=== PATIENT | female | born 1960 | race African-American/Black ===

== ENCOUNTER 2018-11-03 09:18 | Day surgery (SDC) | payer OTHER ==
--- NOTE | 2018-11-01 14:18 | RAD REPORT ---
EXAM DESCRIPTION: Manasa Bryan (2 Views)11/01/2018 2:08 pm CLINICAL HISTORY: Preop for ankle surgery COMPARISON: 2013 FINDINGS: The right hemidiaphragm is moderately elevated. The elevation has progressed since the reno or exam. The lungs appear clear of acute infiltrate. The heart is normal size
[2018-11-01 14:25] LABS: Absolute Lymphocytes (CBC) 2.1 K/uL (0.7-4.9); Absolute Monocytes 0.4 K/uL (0.1-1.3); Absolute Neutrophil 2.9 K/uL (1.8-8.0); Basophils % 0.6 % (0-1.3); Hematocrit 41.9 % (36.0-45.0); Lymphocytes % 37.2 % (15.3-44.8); MPV 8.3 fL (7.6-11.3); Monocytes % 6.5 % (3.3-12.3); RBC Red Blood Cell Count 4.54 M/uL (3.86-4.86)
[2018-11-01 14:28] LABS: Protime INR 1.03
[2018-11-01 14:45] LABS: Potassium 3.8 mmol/L (3.5-5.1)
--- NOTE | 2018-11-01 15:06 | EKG ---
Test Date: 2018-11-01 Test Time: 13:48:10 Shank Taper: SUSHMA MEASUREMENT RESULTS: Intervals: Rate: 55 NC: 168 QRSD: 78 QT: 484 QTc: 463 [place]: P: 31 NC: 168 QRS: 41 T: 54 INTERPRETIVE STATEMENTS: Sinus bradycardia Otherwise normal ECG Compared to ECG 08/16/2011 06:52:04 No significant changes Electronically Signed On 11-01-18 15:05:43 GAME PROGRAMMER by Michael Bay
--- OUTSIDE RECORDS SUMMARY | 2018-11-03 09:20 | XMS REPORT | Clinical Summary ---
:1960 Author Organization [facility] Address [address] [place] [id number] Care Team Providers Name Role Phone Telly Yao MD Primary Care Provider Unavailable Allergies No Known Allergies Medications Medication Sig Dispensed Refills Start Date End Date Status carvedilol (COREG) Take 12.5 mg by 0 Active 12.5 MG tablet mouth every morning. benazepril Take 40 mg by mouth 0 Active (LOTENSIN) 40 MG every morning. tablet pregabalin (LYRICA) Take 100 mg by mouth 0 Active 100 MG capsule 3 (three) times a day. ESCITALOPRAM OXALATE Take by mouth every 0 Active (LEXAPRO ORAL) morning. ALBUTEROL SULFATE Inhale as needed. 0 Active INHL CHOLECALCIFEROL, Take by mouth daily. 0 Active VITAMIN D3, (VITAMIN D3 ORAL) cetirizine (ZyrTEC) TAKE 1 TABLET BY 5 03/26/2016 Active 10 MG tablet MOUTH ONCE A DAY NEEDED FOR ALLERGIES MICROLET LANCET misc USE 2 TIMES A DAY (E 12 04/03/2016 Active 11.9) LYRICA 150 mg Take 150 mg by mouth 0 04/15/2016 Active capsule 3 (three) times a day. CRESTOR 10 mg tablet Take 10 mg by mouth 04/01/2016 Active once daily. amLODIPine (NORVASC) 0 10/31/2016 Active 5 mg tablet escitalopram Take 20 mg by mouth 5 10/05/2016 Active (LEXAPRO) 20 MG once daily. tablet HYDROcodone-acetamin 0 10/28/2016 Active ophen (NORCO) 10-325 mg per tablet omeprazole TAKE ONE CAPSULE BY 30 capsule 05/07/2017 Active (PriLOSEC) 40 MG MOUTH EVERY DAY capsule BEFORE A MEAL cyanocobalamin 1,000 INJECT 1 MILLILITER 1 mL 05/15/2017 Active mcg/mL injection INTRAMUSCULARLY ONCE EVERY MONTH Active Problems Problem Noted Date Hypertension 05/03/2016 Chronic headaches 05/03/2016 Morbid obesity 04/28/2016 Encounters Date Type Specialty Care Team Description 05/24/2018 Refill General Surgery Rodrick Wyman MD after 11/02/2017 Family History Medical History Relation Name Comments Heart disease Father Hyperlipidemia Father Cancer Sister Relation Name Status Comments Father Alive [place];CABG Mother (Age 58) hx [place] Sister Social History Tobacco Use Types Packs/Day Years Used Date Never Smoker Smokeless Tobacco: Never Used Alcohol Use Drinks/Week oz/Week Comments Yes social < 2/week Sex Assigned at Date Recorded Not on file Job Start Date Occupation Industry Not on file Not on file Not on file Travel History Travel Start Travel End No recent travel history available. Last Filed Vital Signs Not on file Plan of Treatment Health Maintenance Due Date Last Done Comments CERVICAL CANCER SCREENING 1980 BREAST CANCER SCREENING 2009 COLON CANCER SCREENING 2009 SHINGLES VACCINES (1 of 2) 2009 INFLUENZA VACCINE 05/19/2018 Implants Implanted Type Area Channel Specialist Device Shelf Model / Identifier Expiration Serial / Date Lot Matrix [employer] Floseal 10ml W/ Humn F2 - [id number] Surgical N/A: MIRAMONTES 08/18 [id number] / Implanted: Qty: 1 on 04/28/2016 by Rodrick Wyman MD Implants; Abdomen, BIOSCIENCE / Expanders; Middle [id number] Extenders; Quadrant/No Surgical n Specific Wires Results Not on fileafter 11/02/2017 Insurance Payer Benefit Plan / Group Subscriber ID Type Phone Address MEDICARE MEDICARE PART A AND B xxxxxxxxxxx Medicare [place], [place] MEDICAID MEDICAID xxxxxxxxx Medicaid Advance Directives Patient has advance care planning documents on file. For more information, please contact:[place] [address]
[2018-11-03] MEDS ORDERED: NA CHLORIDE 0.9% 1,000 ML ONE ×2 (10:24→12:32)
[2018-11-03] MEDS ORDERED: CEFAZOLIN 2GM (PREMIX IV) 2 GM/50 ML BAG ONE (10:24)
[2018-11-03] MEDS ORDERED: MIDAZOLAM HCL 2 MG/2 ML INJ ONE ×2 (10:48→11:59)
[2018-11-03] MEDS: BUPIVACAINE 0.5% PF 10 ML VIAL ONE ×2 (11:34→12:26)
[2018-11-03] MEDS ORDERED: LIDOCAINE 2% MPF 5 ML VIAL ONE (11:59)
[2018-11-03] MEDS ORDERED: PROPOFOL 200 MG/20 ML VIAL IV ONE ×2 (11:59→13:44)
[2018-11-03] MEDS ORDERED: FENTANYL CITR 100 MCG/2 ML ONE ×3 (11:59→13:04)
[2018-11-03] MEDS ORDERED: ONDANSETRON 4 MG/2 ML VIAL ONE (11:59)
[2018-11-03] MEDS ORDERED: GLYCOPYRROLATE 0.2 MG/ML SYR ONE (12:03)
[2018-11-03] MEDS ORDERED: MORPHINE 10 MG/ML VIAL ONE (12:25)
[2018-11-03] MEDS ORDERED: BUPIVACAINE 0.5% PF 10 ML VIAL ONE (12:34)
[2018-11-03] MEDS ORDERED: EPHEDRINE SULF 50 MG/ML VIAL ONE (12:58)
--- NOTE | 2018-11-03 13:29 | RAD REPORT ---
EXAM DESCRIPTION: RAD - Ankle Right 2 View - 11/03/2018 1:24 pm CLINICAL HISTORY: RT ANKLE ORIF COMPARISON: No comparisons FINDINGS: Fluoroscopic imaging of the right ankle was submitted from ORIF procedure. Details of the procedure not available. Five spot images are submitted. Total fluoroscopy time 0.6 minutes.
[2018-11-03] MEDS: MEPERIDINE HCL 50 MG/ML AMP ONE ×4 (13:47→14:03)
--- NOTE | 2018-11-03 13:48 | P.BOP ---
Preoperative diagnosis: right bimalleolar ankle fracture Postoperative diagnosis: same Primary procedure: ORIF right bimalleolar ankle fracture Secondary procedure: same Branch Rental Manager: NONE,NONE Estimated blood loss: 10 cc Specimen: none Findings: see dictation Anesthesia: General Complications: None Implants: 3 hole Biomet locking distal fibula plate, 1 4.0 cannulated screw Fluids & blood products: per anesthesia; TT: 72 mins @ 300 mmHg Transferred to: Recovery Room Condition: Good
[2018-11-03] MEDS ORDERED: ONDANSETRON 4 MG/2 ML VIAL IV PRN (13:49)
[2018-11-03] MEDS ORDERED: DOCUSATE NA 100 MG CAP PO PRN (13:49)
[2018-11-03] MEDS: HYDROMORPHONE HCL 1 MG/ML INJ ONE ×4 (13:54→14:16)
[2018-11-03] MEDS: PREGABALIN 50 MG CAP PO SCH ×2 (14:00→21:07)
--- NOTE | 2018-11-03 14:42 | RAD REPORT ---
EXAM DESCRIPTION: RAD - Ankle Right 2 View - 11/03/2018 2:15 pm CLINICAL HISTORY: post op COMPARISON: Ankle Right 2 View dated 11/03/2018 FINDINGS: Orthopedic hardware is present about the right ankle. No unexpected postoperative finding. Splint material is present, obscuring bone detail. Prominent calcaneal spur seen.
[2018-11-03 14:47] LABS: Hematocrit 37.9 % (36.0-45.0)
[2018-11-03] MEDS ORDERED: ALBUTEROL (PROAIR) INHALER IH PRN (15:00)
[2018-11-03 16:18] VITALS: BMI 40.5
[2018-11-03] MEDS: INSULIN -REGULAR HUMAN 50 UNIT/0.5 ML ML SQ SCH ×3 (16:30→21:00)
--- NOTE | 2018-11-03 16:51 | P.CNS ---
Date of Consult: 11/03/18 Reason for Consult: Chronic Medical Disease Requesting Physician: Mohan Mcgovern Primary Care Provider: Dr Yao Chief Complaint: Right ankle Fracture History of Present Illness: This is a 58-year-old female with significant past medical history of hypertension, asthma, diabetes, depression, hyperlipidemia who presented to the hospital in the outpatient surgery center to get her right ankle fracture fixed. Patient had full couple a days ago at the house and had fractured her right ankle and was seen by orthopedic in the office and was scheduled for an operation procedure. Patient had open reduction internal fixation of her right ankle with orthopedics today and did well overall however due to her chronic condition the decision was made to admit the patient here in the hospital for 24 hr after the surgery. Medicine team was consulted at that time to manage all her chronic condition as mentioned above. Allergies No Known Allergies Allergy (Verified 11/01/18 13:32) Home Medications: Benazepril HCl [Lotensin*] 40 mg PO DAILY 01/25/15 Cetirizine HCl [Zyrtec] 5 mg PO BID 01/25/15 Citalopram [Celexa] 20 mg PO DAILY 01/25/15 Metformin ER [Glucophage ER] 500 mg PO BID 01/25/15 Pregabalin [Lyrica] 150 mg PO TID 01/25/15 Albuterol Sulfate [Proair Hfa] 8.5 gm IH PRN PRN 11/01/18 Amlodipine [Norvasc] 10 mg PO [id number] 11/01/18 Atorvastatin Calcium [Lipitor] 40 mg PO BEDTIME 11/01/18 Dulaglutide [Trulicity] 0.75 mg SQ EVERY 7TH DAY 11/01/18 Hydrocodone 7.5/APAP 325 [[place] 7.5/325 mg] 1 tab PO Q6H PRN 11/01/18 Omeprazole [Prilosec] 40 mg PO DAILY 11/01/18 Mv-Mn/Iron/FA/Herbal Cmplx#190 [Vitamin D3 Complete Caplet] 1 each PO DAILY - Past Medical/Surgical History Diabetic: Yes -: Diabetes -: Hypertension -: Asthma -: Obstructive Sleep Apnea -: MRSA 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 moist/pink, EOMI, Sclerae nonicteric Neck: Supple, 2+ carotid pulse no bruit, No LAD, Without JVD or thyroid abnormality Respiratory: Clear to auscultation bilaterally, Normal air movement Cardiovascular: Regular rate/rhythm, Normal S1 S2 Gastrointestinal: Normal bowel sounds, No tenderness Musculoskeletal: Cast in place (Right ankle) Integumentary: No rashes Neurological: Normal gait, Normal speech, Normal tone, Normal affect Lymphatics: No axilla or inguinal lymphadenopathy Laboratory Data (last 24 hrs) 11/03/18 14:17: Hgb 12.6, Hct 37.9 - Problems (1) Ankle fracture, right Current Visit: Yes Status: Acute Plan: Right ankle fracture status post fall -orthopedics is primary on the case. -patient status post open reduction internal fixation of the right ankle at this time -tolerated the procedure well -PT consulted to ambulate. -IS ordered to prevent atelectasis versus pneumonia -monitor closely for next 24-48 hr Qualifiers: Encounter type: initial encounter Fracture type: closed Qualified Code(s) : S82.891A - Other fracture of right lower leg, initial encounter for closed fracture (2) Hypertension Current Visit: Yes Status: Chronic Plan: Currently blood pressure is controlled. -will restart home medication at this time. -patient taking amlodipine at the house along with a beta-louann Qualifiers: Hypertension type: essential hypertension Qualified Code(s): I10 - Essential (primary) hypertension (3) Diabetes Current Visit: Yes Status: Chronic Plan: Patient takes metformin and Trulicity -will hold both of them at this time -insulin sliding scale at this time -ADA diet Qualifiers: Diabetes mellitus type: type 2 Diabetes mellitus prism measurer insulin use: without detention use Diabetes mellitus complication status: without complication Qualified Code(s): E11.9 - Type 2 diabetes mellitus without complications (4) Asthma Current Visit: Yes Status: Chronic Plan: Chronic history of intermittent asthma -monitor closely here in the hospital. Qualifiers: Asthma severity: mild Asthma persistence: intermittent Asthma complication type: unspecified Qualified Code(s): J45.20 - Mild intermittent asthma, uncomplicated Conclusions/Impression: Patient is currently admitted to the hospital under observation after having ankle fracture surgery. Will monitor closely for next 24-48 hr. Will follow along with orthopedics. Thank you for the kind consult. Critical Care: No
[2018-11-03] MEDS ORDERED: METFORMIN ER 500 MG TAB PO SCH (17:00)
[2018-11-03] MEDS: CEFAZOLIN 2GM (PREMIX IV) 2 GM/50 ML BAG IV SCH ×2 (18:18→23:37)
[2018-11-03] MEDS: HYDROCODONE/APAP 7.5/325 MG TAB PO PRN ×2 (18:23→23:36)
[2018-11-03] MEDS ORDERED: NA CHLORIDE 0.9% 250 ML ONE (18:32)
[2018-11-03] MEDS: MORPHINE 4 MG/ML SYR IV PRN (19:47)
[2018-11-03] MEDS ORDERED: ATORVASTATIN 40 MG TAB PO SCH (21:00)
[2018-11-03] MEDS: CETIRIZINE HCL 5 MG TABLET PO SCH (21:08)
[2018-11-03 22:08] VITALS: O2SAT 98
[2018-11-03 23:37] LABS: Urine Appearance CLEAR; Urine Bilirubin NEGATIVE (NEG); Urine Blood NEGATIVE (NEG); Urine Color YELLOW; Urine Glucose NEGATIVE (NEG); Urine Protein NEGATIVE (NEG); Urine Specific Gravity 1.015 (1.005-1.030); Urine Urobilinogen 0.2 mg/dL (0.2-1.0)
[2018-11-03 23:38] LABS: Urine Microscopic Reflex NO UMIC
[2018-11-04] MEDS: MORPHINE 4 MG/ML SYR IV PRN ×2 (01:53→09:36)
--- NOTE | 2018-11-04 02:04 | OP ---
Date of Procedure: 11/03/2018 Surgeon: Mohan Mcgovern MD Preoperative Diagnosis: Right bimalleolar ankle fracture. Postoperative Diagnosis: Right bimalleolar ankle fracture. Procedure Performed: Open reduction and internal fixation of right bimalleolar ankle fracture. Anesthesia: General LMA. Fluids: Per Anesthesia record. Estimated Blood Loss: Less than 10 cc. Tourniquet Time: 72 minutes at 300 mmHg. Indication For Procedure: Margy is a 58-year-old female who presented to my clinic after sustaining a twisting injury to her right ankle with x-rays consistent with a bimalleolar ankle fracture. Given the unstable fracture pattern, I discussed with the patient at length risks and benefits associated with operative and nonoperative treatment. She expressed understanding and elected to proceed with operative treatment. Description Of Procedure: After informed consent was obtained, the patient was identified in the preoperative holding area. The right lower extremity was marked. The patient was then brought back to the operating room, transferred to the operative table in supine fashion and placed under general LMA anesthesia. The right lower extremity was then prepped and draped in usual sterile fashion. A time-out was initiated. Correct patient and procedure were confirmed and identified. The patient did receive preoperative prophylactic antibiotics. The right lower extremity was then exsanguinated using an Esmarch and the tourniquet inflated at 300 mmHg. Approximately, a 12 cm longitudinal incision was made over the lateral aspect of the ankle along the distal fibula. Dissection was taken down to the distal fibula using a Metzenbaum. It appeared to me that the venous tourniquet, there was venous bleeding with the dissection. At that point, the tourniquet was let down and then reinflated. As that was performed, bleeding was then well controlled. Again, the fracture site was identified. It was an oblique fracture pattern. The patient did appear to have weakened bone and at that point, it was elected to use a distal fibular locking plate. A point reduction clamp was then used to reduce the oblique fracture pattern, and 3-hole distal fibular locking plate was placed to the lateral malleolus. Proper positioning was confirmed using fluoroscopy. Four unicortical locking screws were placed in the distal fragment, followed by 3 screws in a bicortical fashion in the proximal segment. There was good overall reduction of the fracture fragment and confirmed with fluoroscopy. A Cotton's test was used to confirm that the syndesmosis was in fact intact. Wound was then irrigated thoroughly with normal saline, and subcutaneous tissue was approximated using a 2-0 Vicryl. Next, attention was taken to the medial malleolus. The fracture was very distal and there was a small fracture fragment that was large enought to only take 1 screw. Dissection was then taken down to the tip of the medial malleolus using Metzenbaum. A single guide pin was then placed in the tip of the fracture fragment in a retrograde fashion to the distal tibia. A 36 cannulated partially-threaded 4.0 screw was used, placed over the guide pin, after the outer cortex was drilled. There was good compression at the fracture site noted. Pin was then removed. Lateral x-rays again demonstrated proper placement of the hardware in the lateral view. Final x-rays were taken. Wound was then irrigated thoroughly with normal saline. The subcutaneous tissue was approximated using a 2-0 Vicryl, skin was approximated using a 3-0 nylon. Sterile dressings were applied. The patient was placed in a posterior stirrup splint, awakened and transferred to PACU in good condition. Postoperative Plan: She will be nonweightbearing on her right lower extremity. She will be admitted to the floor. Given her history of hypertension and diabetes, Internal Medicine will be consulted for medical management, and we will plan on discharge tomorrow if she mobilizes safely. FRANCISCO/JV Voice ID: [id number] Report ID: [id number] PENG
[2018-11-04] MEDS ORDERED: BENAZEPRIL 20 MG TAB PO SCH (06:00)
[2018-11-04] MEDS ORDERED: AMLODIPINE 10 MG TAB PO SCH (06:00)
[2018-11-04] MEDS: HYDROCODONE/APAP 7.5/325 MG TAB PO PRN ×2 (06:01→14:05)
[2018-11-04] MEDS: CEFAZOLIN 2GM (PREMIX IV) 2 GM/50 ML BAG IV SCH (06:01)
[2018-11-04] MEDS ORDERED: PANTOPRAZOLE 40MG TABLET PO SCH (06:30)
[2018-11-04] MEDS: INSULIN -REGULAR HUMAN 50 UNIT/0.5 ML ML SQ SCH ×3 (07:30→16:30)
[2018-11-04] MEDS: PREGABALIN 50 MG CAP PO SCH ×2 (08:48→14:04)
[2018-11-04] MEDS: CETIRIZINE HCL 5 MG TABLET PO SCH (08:48)
[2018-11-04] MEDS ORDERED: CITALOPRAM 10 MG TABLET PO SCH (09:00)
--- NOTE | 2018-11-04 10:01 | P.PN ---
Subjective Date of Service: 11/04/18 Primary Care Provider: Dr Yao Chief Complaint: Right ankle Fracture Resting in bed during visit. She reports right ankle pain but has improved since yesterday. Physical Examination - Vital Signs Temperature: 98.3 F Blood Pressure: 148/72 Pulse: 65 Respirations: 17 Pulse Ox (%): 95 - Physical Exam General: Alert, In no apparent distress Musculoskeletal: Other (RLE: splint is c/d/i; +EHL/FHL; sensation grossly intact distally) - Studies Laboratory Data (last 24 hrs) 11/03/18 14:17: Hgb 12.6, Hct 37.9 Assessment And Plan - Plan Margy is a 58 yo female s/p ORIF of her right ankle fracture POD#1 -will mobilize with PT this AM -if mobilizes safely with PT will d/c home -home pain management per her pain management physician
--- NOTE | 2018-11-04 11:39 | P.PN ---
Subjective Date of Service: 11/04/18 Primary Care Provider: Dr Yao Chief Complaint: Right ankle Fracture Subjective: Tolerating diet, Ambulating, Improving, Working w/ PT, Doing well Review of Systems 10-point ROS is otherwise unremarkable Physical Examination - Vital Signs Temperature: 98.3 F Blood Pressure: 148/72 Pulse: 65 Respirations: 17 Pulse Ox (%): 95 - Physical Exam General: Alert, In no apparent distress HEENT: Atraumatic, PERRLA, EOMI Neck: Supple, JVD not distended Respiratory: Clear to auscultation bilaterally, Normal air movement Cardiovascular: Regular rate/rhythm, Normal S1 S2 Gastrointestinal: Normal bowel sounds, No tenderness Musculoskeletal: Other Integumentary: No rashes Neurological: Normal speech, Normal tone, Normal affect Lymphatics: No axilla or inguinal lymphadenopathy - Studies Laboratory Data (last 24 hrs) 11/03/18 14:17: Hgb 12.6, Hct 37.9 Medications List Reviewed: Yes Assessment And Plan - Current Problems (Diagnosis) (1) Ankle fracture, right Current Visit: Yes Status: Acute Plan: Right ankle fracture status post fall -orthopedics is primary on the case. -patient status post open reduction internal fixation of the right ankle at this time -tolerated the procedure well -PT consulted to ambulate. -IS ordered to prevent atelectasis versus pneumonia Qualifiers: Encounter type: initial encounter Fracture type: closed Qualified Code(s) : S82.891A - Other fracture of right lower leg, initial encounter for closed fracture (2) Hypertension Current Visit: Yes Status: Chronic Plan: Currently blood pressure is controlled. -will restart home medication at this time. -patient taking amlodipine at the house along with a beta-louann Qualifiers: Hypertension type: essential hypertension Qualified Code(s): I10 - Essential (primary) hypertension (3) Diabetes Current Visit: Yes Status: Chronic Plan: Patient takes metformin and Trulicity -will hold both of them at this time -insulin sliding scale at this time -ADA diet Qualifiers: Diabetes mellitus type: type 2 Diabetes mellitus skilled nursing insulin use: without long term care pharmacist use Diabetes mellitus complication status: without complication Qualified Code(s): E11.9 - Type 2 diabetes mellitus without complications (4) Asthma Current Visit: Yes Status: Chronic Plan: Chronic history of intermittent asthma -monitor closely here in the hospital. Qualifiers: Asthma severity: mild Asthma persistence: intermittent Asthma complication type: unspecified Qualified Code(s): J45.20 - Mild intermittent asthma, uncomplicated Discharge Plan: Home Plan to discharge in: 48 Hours - Code Status/Comfort Care Code Status Assessed: Yes Critical Care: No
[2018-11-04 18:29] VITALS: BP 116/58; TEMP 98.6
[2018-11-10] MEDS ORDERED: HOME MED 1 EA UNK (Dulaglutide [Trulicity] 0.75 MG) SQ SCH (09:00)
== END 2018-11-04 17:35 | disposition home health service (06) ==
LOC: OR 09:18 → 2ND 14:05 → OR 11-04 17:35
PROVIDERS: ATTEND Orthopaedic Surgery Sports Medicine
PROC: 0QSJ04Z Reposition Right Fibula with Internal Fixation Device, Open Approach (ICD-10-PCS; 2018-11-03)
PROC: 0QSG04Z Reposition Right Tibia with Internal Fixation Device, Open Approach (ICD-10-PCS; principal; 2018-11-03 10:30)
DX: S82.841A Displaced bimalleolar fracture of right lower leg, initial encounter for closed fracture (principal); E11.9 Type 2 diabetes mellitus without complications; I10 Essential (primary) hypertension; J45.909 Unspecified asthma, uncomplicated; K21.9 Gastro-esophageal reflux disease without esophagitis; Z88.6 Allergy status to analgesic agent; Z98.84 Bariatric surgery status
CPT/HCPCS: 27814; 36415 ×2; 71046; 73600 ×2; 80048; 81003; 82962 ×7; 85014; 85018; 85025; 85610; 85730; 93005; 97116; 97163; 97530 ×3; J0690 ×2; J1170 ×2; J2175; J2250; J2405 ×2; J2704 ×2; J3010 ×3; J7030 ×2

== ENCOUNTER 2019-12-14 11:59 | Emergency (ER) | payer OTHER ==
--- OUTSIDE RECORDS SUMMARY | 2019-12-14 12:02 | XMS REPORT ---
:1960 [facility] Address [address] [place] [address] Dr. Palomino. [address] [place] [address] Care Team Providers Name Role Phone Unavailable Unavailable Unavailable Problems This patient has no known problems. Allergies, Adverse Reactions, Alerts This patient has no known allergies or adverse reactions. Medications This patient has no known medications.
--- OUTSIDE RECORDS SUMMARY | 2019-12-14 12:03 | XMS REPORT | Summary of Care ---
:1960 Author Organization [facility] Address [address] [place] [address] Care Team Providers Name Role Phone Unavailable Primary Care Provider Unavailable Reason for Visit Reason Comments Refill Request Encounter Details Date Type Department Care Team Description 07/02/[address] [facility] Endocrinology- Sarai Turner MD Refill Request [facility] [address] [place] [phone] Allergies No Known Allergiesdocumented as of this encounter (statuses as of 07/06/2019) Medications Medication Sig Dispensed Refills Start Date End Date Status benazepril 40 mg Take 40 mg by mouth. 0 Active tablet escitalopram oxalate Take by mouth. 0 Active 10 mg tablet albuterol 0.63 mg/3 Inhale. 0 Active mL nebulizer solution cetirizine 10 mg TAKE 1 TABLET BY 0 03/26/2016 Active tablet MOUTH ONCE A DAY NEEDED FOR ALLERGIES Cholecalciferol, Take by mouth. 0 Active Vitamin D3, 400 unit tablet zolpidem (AMBIEN) 5 Take 5 mg by mouth 0 Active mg tablet at bedtime as needed for Insomnia. esomeprazole Take 40 mg by mouth 0 Active (NEXIUM) 40 mg daily with capsule breakfast. AMLODIPINE 10 mg TAKE 1 TABLET BY 120 tablet 0 04/28/2018 Active tabletIndications: MOUTH DAILY. Essential hypertension, Bradycardia cyanocobalamin 1,000 INJECT 1 MILLILITER 9 04/23/2018 Active mcg/mL injection INTRAMUSCULARLY ONCE EVERY MONTH diphenoxylate-atropi TAKE 1 TABLET BY 1 04/23/2018 Active ne 2.5-0.025 mg per MOUTH FOUR TIMES A tablet DAY NEEDED ONE TOUCH DELICA 33 USE DIRECTED, 1 04/23/2018 Active gauge Misc TWICE A DAY, DX:E11.9 omeprazole 40 mg TAKE 1 CAPSULE BY 0 05/30/2018 Active capsule MOUTH EVERY DAY ondansetron 4 mg TAKE 1 TABLET BY 2 05/30/2018 Active tablet MOUTH ONCE A DAY indomethacin 50 mg Take 50 mg by mouth 0 Active capsule 3 (three) times daily with meals. ONETOUCH ULTRA BLUE USE DIRECTED, 200 Strip 1 10/26/2018 Active TEST STRIP strip TWICE A DAY, DX:E11.9 metformin ER 500 mg Take 2 tablets by 360 tablet 1 10/26/2018 Active 24 hr mouth 2 (two) times tabletIndications: daily. Type 2 diabetes mellitus without complication, without long-term current use of insulin sitaGLIPtin Take 1 tablet by 90 tablet 1 01/10/2019 Active (JANUVIA) 100 mg mouth daily. tabletIndications: Type 2 diabetes mellitus without complication, without long-term current use of insulin ATORVASTATIN 40 mg TAKE 1 TABLET BY 90 tablet 1 02/07/2019 Active tablet MOUTH AT BEDTIME. ONE TOUCH DELICA 33 USE DIRECTED, 200 Each 1 02/28/2019 Active gauge Misc TWICE A DAY, DX:E11.9 glipiZIDE 10 mg Take 1 tablet by 30 tablet 2 05/31/2019 Active tabletIndications: mouth daily. Type 2 diabetes mellitus without complication, without long-term current use of insulin documented as of this encounter (statuses as of 07/06/2019) Active Problems Problem Noted Date S/P hysterectomy 06/02/2018 Vasomotor symptoms due to menopause 06/02/2018 Morbid obesity 06/02/2018 Abnormal thyroid blood test 01/27/2018 Dyslipidemia 01/27/2018 Essential hypertension 01/27/2018 Type 2 diabetes mellitus without complication, without long-term current 10/21 use of insulin Low TSH level 10/21/2017 Low serum cortisol level 10/21/2017 Weight gain 10/21/2017 documented as of this encounter (statuses as of 07/06/2019) Social History Tobacco Use Types Packs/Day Years Used Date Never Smoker Smokeless Tobacco: Never Used Alcohol Use Drinks/Week oz/Week Comments Yes Rare Sex Assigned at Date Recorded Not on file Job Start Date Occupation Industry Not on file Not on file Not on file Travel History Travel Start Travel End No recent travel history available. documented as of this encounter Last Filed Vital Signs Not on filedocumented in this encounter Plan of Treatment Health Maintenance Due Date Last Done Comments HEPATITIS C (HCV) SCREEN 1960 PNEUMOCOCCAL 0-64 YEARS COMBINED 1965 SERIES (1 of 1 - PPSV23) EYE EXAM 1969 URINE MICROALBUMIN 1969 DTaP,Tdap,and Td Vaccines (1 - 1978 Tdap) PAP SMEAR 1980 COLONOSCOPY 2009 Zoster Recombinant Vaccine 2009 (SHINGRIX) (1 of 2) MAMMOGRAM 06/02/2019 06/02/2018 INFLUENZA VACCINE (#1) 2019 HgA1C 07/13/2019 01/10/2019, 07/13/2018, 01/27/2018, Additional history exists FOOT EXAM 01/11/2020 01/10/2019, 01/10/2019, 07/13/2018, Additional history exists CREATININE (SERUM) 01/19/2020 01/18/2019, 10/21/2017 LDL-C 01/19/2020 01/18/2019, 10/21/2017 documented as of this encounter Results Not on filedocumented in this encounter Insurance Payer Benefit Plan / Subscriber ID Effective Dates Phone Address Type Group MEDICARE MEDICARE PART xxxxxxxxxxx 2003-Scott [id number] [place] [id number] [facility] MEDICAID OF xxxxxxxxx 2014-Scott [phone] [address] Medicaid [place] [id number] [place] [address] documented as of this encounter
--- OUTSIDE RECORDS SUMMARY | 2019-12-14 12:03 | XMS REPORT ---
:1960 Author Organization e[employer]Works Care Team Providers Name Role Phone Mohan Mcgovern Provider Role Unavailable Allergies, Adverse Reactions, Alerts Substance Reaction Event Type Tetanus Info Not Available Drug Allergy Problems Problem Type Condition Code Onset Dates Condition Status Problem Pain, joint, foot, right M25.571 Active Problem Pain, joint, ankle, right M25.571 Active Assessment Pain, joint, ankle, right M25.571 Active Assessment Peroneal tenosynovitis M65.9 Active Medications Medication Code Code Instructions Start End Status Dosage System Date Date Omeprazole [facility] [id number] Active not defined Hydrocodone-Aceta [facility] [id number] 7.5-325 MG Oral Active not minophen defined Januvia [facility] [address]-36 Active not defined Escitalopram [facility] [address]-22 Active not Oxalate defined Atorvastatin [facility] [address]-31 Active not Calcium defined MetFORMIN HCl ER [facility] [address]-83 Active not defined Ondansetron HCl [facility] [address]-28 Active not defined PreviDent 5000 [facility] [address]-70 Active not Booster Plus defined Diphenoxylate-Atr [facility] [address]-96 Active not opine defined Trulicity [facility] [address]-97 Active not defined Amoxicillin [facility] [address]-39 Active not defined Bacitracin [facility] [address]-38 Active not defined Nitrofurantoin [facility] [address]-34 Active not Monohyd Macro defined Amlodipine ND 0 Active not Besylate defined Benazepril HCl [facility] [address]-11 Active not defined GlipiZIDE ER [facility] [address]-34 Active not defined Results No Known Results Summary Purpose eClinicalWorks Submission
--- NOTE | 2019-12-14 13:41 | RAD REPORT ---
EXAM DESCRIPTION: RAD - Shoulder Left 2 View - 12/14/2019 1:27 pm CLINICAL HISTORY: pain, blunt force trauma to the left shoulder region COMPARISON: No comparisons TECHNIQUE: Internal and external rotation views of the left shoulder were obtained. FINDINGS: There is no fracture or dislocation. Minimal degenerative change seen along the inferior m argin AC joint. Acromial humeral joint space is normal. No proximal left humerus suspicious finding. No acute or suspicious findings. IMPRESSION: Negative two-view left shoulder examination for acute findings. Mild AC joint degenerative change.
--- NOTE | 2019-12-14 13:42 | RAD REPORT ---
EXAM DESCRIPTION: RAD - C Spine Ap/Lat - 12/14/2019 1:28 pm CLINICAL HISTORY: pain COMPARISON: No comparisons FINDINGS: Cervical bodies are normal in height and alignment. No fracture or acute bony process seen . C5-6 and C6-7 disc space narrowing seen with anterior endplate spurring. There is no prevertebral soft tissue thickening or other suspicious soft tissue finding. IMPRESSION: C5-6 and C6-7 disc and endplate degenerative change. No acute findings seen.
--- NOTE | 2019-12-14 14:18 | ER ---
Nurse's Notes [facility] Name: Margy Nix Age: 59 yrs Sex: Female : 1960 Arrival Date: 12/14/2019 Time: 12:14 Bed 25 Private MD: Diagnosis: Contusion of left shoulder Presentation: 12/14 12:38 Presenting complaint: Patient states: was at [facility] and security camera fell from ceiling onto her left neck and shoulder area down to her back, denies LOC, denies being on blood thinners , occurred about 3 hours ago. Care prior to arrival: None. 12:38 Acuity: CHAN 4 iw 12:38 Method Of Arrival: Ambulatory iw 12:40 Transition of care: patient was not received from another setting of care. Onset of symptoms was December 14, 2019. Risk Assessment: Do you want to hurt yourself or someone else? Patient reports no desire to harm self or others. Initial Sepsis Screen: Does the patient meet any 2 criteria? No. Patient's initial sepsis screen is negative. Does the patient have a suspected source of infection? No. Patient's initial sepsis screen is negative. Triage Assessment: 12:56 General: Appears in no apparent distress. Behavior is calm, cooperative, appropriate vc for age. Pain: Denies pain. Historical: - Allergies: 12:41 Tetanus Vaccines \T\ Toxoid; iw - PMHx: 12:41 Hypertension; Diabetes - NIDDM; iw - PSHx: 12:41 Hernia repair; Hysterectomy; lap band; jaye knee replacements; breast reduction; iw - Immunization history:: Adult Immunizations not up to date. - Coronavirus screen:: The patient has NOT traveled to [place] in the past 14 days. Proceed with normal triage process as indicated. - Social history:: Smoking status: Patient denies any tobacco usage or history of. - Ebola Screening: : Patient negative for fever greater than or equal to 101.5 degrees Fahrenheit, and additional compatible Ebola Virus Disease symptoms Patient denies exposure to infectious person Patient denies travel to an Ebola-affected area in the 21 days before illness onset No symptoms or risks identified at this time. Screenin:56 Abuse screen: Denies threats or abuse. Nutritional screening: No deficits noted. vc Tuberculosis screening: No symptoms or risk factors identified. Fall Risk None identified. Assessment: 12:57 General: Appears in no apparent distress. uncomfortable, Behavior is calm, cooperative, vc appropriate for age. Pain: Denies pain. Neuro: Level of Consciousness is awake, alert, obeys commands, Oriented to person, place, time. Cardiovascular: Patient's skin is warm and dry. Respiratory: Airway is patent Respiratory effort is even, unlabored, Respiratory pattern is regular, symmetrical. GI: No signs and/or symptoms were reported involving the gastrointestinal system. Abdomen is round non-distended, obese. : No deficits noted. EENT: No signs and/or symptoms were reported regarding the EENT system. Derm: Skin is clammy, Skin is normal. Musculoskeletal: Circulation, motion, and sensation intact. 13:38 Reassessment: Patient and/or family updated on plan of care and expected duration. Pain vc level reassessed. Patient is alert, oriented x 3, equal unlabored respirations, skin warm/dry/pink. Vital Signs: 12:41 BP 160 / 87; Pulse 52; Resp 16; Temp 98.0; Pulse Ox 98% on R/A; Weight 120.2 kg; Height iw 5 ft. 7 in. (170.18 cm); Pain 4/10; 13:40 BP 126 / 80; Pulse 61; Resp 17; Temp 98.7(O); Pulse Ox 96% on R/A; Pain 4/10; vc 12:41 Body Mass Index 41.50 (120.20 kg, 170.18 cm) iw ED Course: 12:14 Patient arrived in ED. fj1 12:27 Annia Arzola FNP-C is [facility]. snw 12:27 Kishan Clement MD is Attending Physician. snw 12:40 Triage completed. iw 12:41 Arm band placed on. iw 12:55 Minal Hermosillo, LISA is Primary Nurse. vc 12:57 Patient has correct armband on for positive identification. vc 13:43 No provider procedures requiring assistance completed. Patient did not have IV access vc during this emergency room visit. Administered Medications: No medications were administered Outcome: 13:38 Discharge ordered by . snw 13:43 Discharged to home ambulatory, with family. vc 13:43 Condition: good 13:43 Discharge instructions given to patient, family. 13:45 Patient left the ED. vc Signatures: Annia Arzola HISTORICAL GUIDE-C HISTORICAL GUIDE-Csnw Shirley Carmona RN RN iw Minal Hermosillo RN RN vc William Whyte fj1 Corrections: (The following items were deleted from the chart) 12:42 12:41 BP 160 / 87; Pulse 52bpm; Resp 16bpm; Pulse Ox 98% RA; Temp 98.0F; 120.2 kg; iw Height 5 ft. 7 in.; BMI: 41.5; Pain 0/10; iw
--- NOTE | 2019-12-14 14:18 | EDPHYS ---
Physician Documentation [facility] Name: Margy Nix Age: 59 yrs Sex: Female : 1960 Arrival Date: 12/14/2019 Time: 12:14 Bed 25 Private MD: ED Physician Kishan Clement HPI: 12/14 13:28 This 59 yrs old Black Female presents to ER via Ambulatory with complaints of Neck snw Injury, Back Injury. 13:28 The patient or guardian complains of an injury. The symptoms are located on the left snw base of the skull. The symptoms are located and down right shoulder . Onset: The symptoms/episode began/occurred suddenly, just prior to arrival, and became persistent. Context: The problem was sustained at a [employer]. Associated signs and symptoms: The patient has no apparent associated signs or symptoms. The pain does not radiate. Modifying factors:. Severity of symptoms: At their worst the symptoms were very mild. The patient has not experienced similar symptoms in the past. It is unknown whether or not the patient has recently seen a physician. Pt states she was bending forward to get her dog and the security camera fell from the ceiling and struck her left shoulder and fell down her back. Historical: - Allergies: 12:41 Tetanus Vaccines \T\ Toxoid; iw - PMHx: 12:41 Hypertension; Diabetes - NIDDM; iw - PSHx: 12:41 Hernia repair; Hysterectomy; lap band; jaye knee replacements; breast reduction; iw - Immunization history:: Adult Immunizations not up to date. - Coronavirus screen:: The patient has NOT traveled to [place] in the past 14 days. Proceed with normal triage process as indicated. - Social history:: Smoking status: Patient denies any tobacco usage or history of. - Ebola Screening: : Patient negative for fever greater than or equal to 101.5 degrees Fahrenheit, and additional compatible Ebola Virus Disease symptoms Patient denies exposure to infectious person Patient denies travel to an Ebola-affected area in the 21 days before illness onset No symptoms or risks identified at this time. ROS: 13:26 Constitutional: Negative for fever, chills, and weight loss, Eyes: Negative for injury, snw pain, redness, and discharge, ENT: Negative for injury, pain, and discharge, Neck: Negative for injury, pain, and swelling, Cardiovascular: Negative for chest pain, palpitations, and edema, Respiratory: Negative for shortness of breath, cough, positive for wheezing and pleuritic chest pain with cough. Pt with hx of asthma, has inhaler, wheezing and cough began with weather change Abdomen/GI: Negative for abdominal pain, nausea, vomiting, diarrhea, and constipation, Back: Negative for injury and pain, : Negative for injury, bleeding, discharge, and swelling, MS/Extremity: Negative for injury and deformity, Skin: Negative for injury, rash, and discoloration, Neuro: Negative for headache, weakness, numbness, tingling, and seizure, Psych: Negative for depression, anxiety, suicide ideation, homicidal ideation, and hallucinations. Exam: 13:20 Constitutional: This is a well developed, well nourished patient who is awake, alert, snw and in no acute distress. Head/Face: Normocephalic, atraumatic. Eyes: Pupils equal round and reactive to light, extra-ocular motions intact. Lids and lashes normal. Conjunctiva and sclera are non-icteric and not injected. Cornea within normal limits. Periorbital areas with no swelling, redness, or edema. ENT: Nares patent. No nasal discharge, no septal abnormalities noted. Tympanic membranes are normal and external auditory canals are clear. Oropharynx with no redness, swelling, or masses, exudates, or evidence of obstruction, uvula midline. Mucous membranes moist. Neck: Trachea midline, no thyromegaly or masses palpated, and no cervical lymphadenopathy. Supple, full range of motion without nuchal rigidity, or vertebral point tenderness. No Meningismus. Chest/axilla: Normal chest wall appearance and motion. Nontender with no deformity. No lesions are appreciated. Cardiovascular: Regular rate and rhythm with a normal S1 and S2. No gallops, murmurs, or rubs. Normal PMI, no JVD. No pulse deficits. Respiratory: Lungs have equal breath sounds bilaterally, clear to auscultation and percussion. No rales, rhonchi or wheezes noted. No increased work of breathing, no retractions or nasal flaring. Abdomen/GI: Soft, non-tender, with normal bowel sounds. No distension or tympany. No guarding or rebound. No evidence of tenderness throughout. Back: No spinal tenderness. No costovertebral tenderness. Full range of motion. Skin: Warm, dry with normal turgor. Normal color with no rashes, no lesions, and no evidence of cellulitis. MS/ Extremity: Pulses equal, no cyanosis. Neurovascular intact. Full, normal range of motion. Neuro: Awake and alert, GCS 15, oriented to person, place, time, and situation. Cranial nerves II-XII grossly intact. Motor strength 5/5 in all extremities. Sensory grossly intact. Cerebellar exam normal. Normal gait. Psych: Awake, alert, with orientation to person, place and time. Behavior, mood, and affect are within normal limits. Vital Signs: 12:41 BP 160 / 87; Pulse 52; Resp 16; Temp 98.0; Pulse Ox 98% on R/A; Weight 120.2 kg; Height iw 5 ft. 7 in. (170.18 cm); Pain 4/10; 13:40 BP 126 / 80; Pulse 61; Resp 17; Temp 98.7(O); Pulse Ox 96% on R/A; Pain 4/10; vc 12:41 Body Mass Index 41.50 (120.20 kg, 170.18 cm) iw MDM: 12:44 Patient medically screened. snw 13:39 Data reviewed: vital signs, nurses notes. Data interpreted: Pulse oximetry: on room air snw is 98 %. Interpretation: normal. Counseling: I had a detailed discussion with the patient and/or guardian regarding: the historical points, exam findings, and any diagnostic results supporting the discharge/admit diagnosis, radiology results, the need for outpatient follow up, to return to the emergency department if symptoms worsen or persist or if there are any questions or concerns that arise at home. Special discussion: Based on the history and exam findings, there is no indication for further emergent testing or inpatient evaluation. I discussed with the patient/guardian the need to see the primary care provider for further evaluation of the symptoms. Administered Medications: No medications were administered Disposition: 14:02 Co-signature as Attending Physician, Kishan Clement MD I agree with the assessment and kdr plan of care. Disposition: 12/14/19 13:38 Discharged to Home. Impression: Contusion of left shoulder. - Condition is Stable. - Discharge Instructions: Contusion. - Prescriptions for Mobic 7.5 mg Oral Tablet - take 1 tablet by ORAL route once daily take with food; 20 tablet. - Medication Reconciliation Form, Thank You Letter, Antibiotic Education, Prescription Opioid Use form. - Follow up: Emergency Department; When: As needed; Reason: Worsening of condition. Follow up: Private Physician; When: 1 - 2 days; Reason: Recheck today's complaints, Continuance of care, Re-evaluation by your physician. Signatures: Kishan Clement MD MD [facility] Annia Arzola, WEDDING DESIGNER-C WEDDING DESIGNER-Csnw Shirley Carmona RN RN Minal Hermosillo RN RN vc Corrections: (The following items were deleted from the chart) 13:45 13:38 12/14/2019 13:38 Discharged to Home. Impression: Contusion of left shoulder. vc Condition is Stable. Forms are Medication Reconciliation Form, Thank You Letter, Antibiotic Education, Prescription Opioid Use. Follow up: Emergency Department; When: As needed; Reason: Worsening of condition. Follow up: Private Physician; When: 1 - 2 days; Reason: Recheck today's complaints, Continuance of care, Re-evaluation by your physician. snw
[2019-12-14 14:23] VITALS: BP 126/80; TEMP 98.7; O2SAT 96
== END 2019-12-14 13:45 | disposition home or self-care (01) ==
LOC: ER 11:59
DX: S40.012A Contusion of left shoulder, initial encounter (principal); W22.8XXA Striking against or struck by other objects, initial encounter; Y93.89 Activity, other specified; Y92.512 Supermarket, store or market as the place of occurrence of the external cause; I10 Essential (primary) hypertension; E11.9 Type 2 diabetes mellitus without complications
CPT/HCPCS: 72040; 99281

== ENCOUNTER 2022-04-29 09:05 | Emergency (ER) | payer OTHER ==
[2022-04-29 09:39] LABS: Urine Blood Negative (Negative); Urine Glucose Negative (Negative); Urine Protein Negative (Negative); Urine pH 5.5 (5.0-7.0)
[2022-04-29] MEDS ORDERED: NA CHLORIDE 0.9% 1,000 ML ONE ×2 (09:49→12:09)
[2022-04-29] MEDS ORDERED: ONDANSETRON 4 MG/2 ML VIAL ONE (09:49)
[2022-04-29] MEDS ORDERED: MORPHINE 4 MG/ML SYR ONE ×2 (09:49→14:14)
[2022-04-29 10:06] LABS: Absolute Lymphocytes (CBC) 1.4 K/uL (0.7-4.9); Hematocrit 40.8 % (36.0-45.0); Lymphocytes % 28.7 % (15.3-44.8); MCV 93.9 fL (80-100); MPV 7.8 fL (7.6-11.3); RBC Red Blood Cell Count 4.35 M/uL (3.86-4.86)
[2022-04-29 10:13] LABS: Urine Bacteria <20 /HPF (<20); Urine RBC <5 /HPF (NONE SEEN)
[2022-04-29 10:35] LABS: Albumin 2.9 g/dL (3.4-5.0); Bilirubin Total 0.9 mg/dL (0.2-1.0); Potassium 4.3 mmol/L (3.5-5.1); Protein, Total 7.5 g/dL (6.4-8.2)
--- NOTE | 2022-04-29 11:21 | RAD REPORT ---
EXAM DESCRIPTION: CT - Abdomen Pelvis Wo Contrast - 04/29/2022 11:13 am CLINICAL HISTORY: Abdominal pain right flank pain COMPARISON: 2019 TECHNIQUE: Computed axial tomography of the abdomen and pelvis was obtained. IV and oral contrast we re not requested. All CT scans are performed using dose optimization technique as appropriate and may include automated exposure control or mA/KV adjustment according to patient size. FINDINGS: The evaluation of solid organs, vessels and bowel is limited secondary to the lack of con trast administration. Multiple, bilateral renal calculi. Moderate right hydronephrosis. 6 millimeter calculus proximal righ t ureter. The appendix is normal. There is no evidence of diverticulitis. Postsurgical changes involve the stomach IMPRESSION: 6 millimeter calculus proximal right ureter resulting in moderate right hydronephrosis
[2022-04-29] MEDS ORDERED: TAMSULOSIN 0.4 MG SR CAP ONE (12:08)
[2022-04-29] MEDS ORDERED: KETOROLAC 30 MG/ML INJ ONE (12:09)
--- NOTE | 2022-04-29 12:29 | ER ---
Nurse's Notes [facility] Name: Margy Nix Age: 62 yrs Sex: Female : 1960 Arrival Date: 04/29/2022 Time: 09:07 Bed 15 Private MD: Diagnosis: Calculus of ureter-right ureter with right hydronephrosis Presentation: 04/29 09:39 Chief complaint: Patient states: Told to come to ER after having outpatient XRAY of ss abdomen obtained. Pt is unsure why. Chief complaint:. Coronavirus screen: Client denies travel out of the [place] in the last 14 days. Ebola Screen: Patient denies exposure to infectious person. Patient denies travel to an Ebola-affected area in the 21 days before illness onset. Initial Sepsis Screen: Does the patient meet any 2 criteria? No. Patient's initial sepsis screen is negative. Does the patient have a suspected source of infection? No. Patient's initial sepsis screen is negative. Risk Assessment: Do you want to hurt yourself or someone else? Patient reports no desire to harm self or others. Onset of symptoms is unknown. 09:39 Method Of Arrival: Ambulatory ss 09:39 Acuity: CHAN 3 ss Historical: - Allergies: 09:29 Tetanus Vaccines \T\ Toxoid; ll1 - PMHx: 09:29 Diabetes - NIDDM; Hypertension; ll1 - Immunization history:: Adult Immunizations up to date. - Social history:: Smoking status: Patient denies any tobacco usage or history of. Screenin:57 Abuse screen: Denies threats or abuse. Nutritional screening: No deficits noted. ll1 Tuberculosis screening: No symptoms or risk factors identified. Fall Risk IV access (20 points). Total [place] Fall Scale indicates No Risk (0-24 pts). Assessment: 09:56 General: Appears uncomfortable, Behavior is calm, cooperative, appropriate for age. ll1 Pain: Complains of pain in right lower quadrant Pain currently is 8 out of 10 on a pain scale. Quality of pain is described as aching. GI: Abdomen is round Bowel sounds present X 4 quads. Reports lower abdominal pain. 11:00 Reassessment: No changes from previously documented assessment. Patient and/or family ll1 updated on plan of care and expected duration. Pain level reassessed. 12:00 Reassessment: No changes from previously documented assessment. Patient and/or family ll1 updated on plan of care and expected duration. Pain level reassessed. Patient is alert, oriented x 3, equal unlabored respirations, skin warm/dry/pink. 13:00 Reassessment: No changes from previously documented assessment. Patient and/or family ll1 updated on plan of care and expected duration. Pain level reassessed. Patient is alert, oriented x 3, equal unlabored respirations, skin warm/dry/pink. 14:00 Reassessment: No changes from previously documented assessment. Patient and/or family ll1 updated on plan of care and expected duration. Pain level reassessed. Patient is alert, oriented x 3, equal unlabored respirations, skin warm/dry/pink. 15:00 Reassessment: No changes from previously documented assessment. Patient and/or family ll1 updated on plan of care and expected duration. Pain level reassessed. Patient is alert, oriented x 3, equal unlabored respirations, skin warm/dry/pink. Vital Signs: 09:39 Resp 16; Weight 121.11 kg; Height 5 ft. 6 in. (167.64 cm); Pain 8/10; ss 09:45 BP 119 / 75; Pulse 66; Resp 16; Temp 97.9(TE); Pulse Ox 97% on R/A; ss 11:00 BP 163 / 83; Pulse 58; ll1 14:00 BP 130 / 81; Pulse 56; Resp 17; ll1 15:00 BP 119 / 66; Pulse 54; Resp 17; Pulse Ox 97% ; ll1 16:00 BP 140 / 87; Pulse 51; Resp 16; Pulse Ox 97% on R/A; ll1 09:39 Body Mass Index 43.09 (121.11 kg, 167.64 cm) ED Course: 09:07 Patient arrived in ED. rg4 09:14 Rogelio Cali NP is PHCP. pm1 09:14 Ernst Leon MD is Attending Physician. pm1 09:14 Ernst Leon MD is Attending Physician. pm1 09:28 Arm band placed on Patient placed in an exam room, on a stretcher. ll1 09:32 Noah Fontenot RN is Primary Nurse. ll1 09:40 Triage completed. ss 09:50 Inserted saline lock: 22 gauge in right antecubital area, using aseptic technique. ll1 Blood collected. 09:57 Patient has correct armband on for positive identification. Bed in low position. Call ll1 light in reach. Side rails up X 1. fur dyer on. Pulse ox on. NIBP on. 11:15 Abdomen In Process Unspecified. EDMS 16:07 No provider procedures requiring assistance completed. IV discontinued, intact, ll1 bleeding controlled, No redness/swelling at site. Pressure dressing applied. Administered Medications: :55 Drug: NS 0.9% 1000 ml Route: IV; Rate: 1 bolus; Site: right antecubital; ll1 11:00 Follow up: Response: No adverse reaction; IV Status: Completed infusion; IV Intake: ll1 1000ml 09:56 Drug: Zofran (Ondansetron) 4 mg Route: IVP; Site: right antecubital; ll1 11:00 Follow up: Response: No adverse reaction ll1 09:56 Drug: morphine 4 mg Route: IVP; Infused Over: 4 mins; Site: right antecubital; ll1 15:01 Follow up: Response: No adverse reaction kr3 12:20 Drug: Ketorolac 15 mg Route: IVP; Site: right antecubital; kr3 14:59 Follow up: Response: No adverse reaction kr3 12:21 Drug: Flomax (tamsulosin) 0.4 mg Route: PO; kr3 16:11 Follow up: Response: No adverse reaction ll1 12:22 Drug: NS 0.9% 1000 ml Route: IV; Rate: 1000 ml; Site: right antecubital; kr3 16:11 Follow up: Response: No adverse reaction; IV Status: Completed infusion; IV Intake: ll1 950ml 14:10 Drug: morphine 4 mg Route: IVP; Infused Over: 4 mins; Site: right antecubital; kr3 15:00 Follow up: Response: No adverse reaction kr3 Medication: :57 VIS not applicable for this client. ll1 Intake: 11:00 IV: 1000ml; Total: 1000ml. ll1 16:11 IV: 950ml; Total: 1950ml. ll1 Outcome: 12:28 Discharge ordered by MD. pm1 16:08 Discharged to home ambulatory. ll1 16:08 Condition: stable 16:08 Discharge instructions given to patient, Instructed on discharge instructions, follow up and referral plans. Demonstrated understanding of instructions, follow-up care, medications, Prescriptions given X 3. 16:12 Patient left the ED. ll1 Signatures: Dispatcher [employer] Mirna Ordonez RN RN ss Rogelio Cali, BATH STEWARD/STEWARDESS BATH STEWARD/STEWARDESS pm1 Sahra Harper rg4 Noah Fontenot RN RN ll1 Ivelisse Michael RN RN kr3 Corrections: (The following items were deleted from the chart) 16:10 16:08 Discharged to home ambulatory, ll1 ll1 16:10 16:08 Discharge instructions given to patient, Instructed on discharge instructions, ll1 follow up and referral plans. Demonstrated understanding of instructions, follow-up care, medications, Prescriptions given X 2, ll1
--- NOTE | 2022-04-29 12:29 | EDPHYS ---
Physician Documentation [facility] Name: Margy Nix Age: 62 yrs Sex: Female : 1960 Arrival Date: 04/29/2022 Time: 09:07 Bed 15 Private MD: ED Physician Ernst Leon HPI: 04/29 09:42 This 62 yrs old Black Female presents to ER via Ambulatory with complaints of Abnormal pm1 Lab Results. 09:42 The patient presents with abdominal pain right lower quadrant. Onset: The pm1 symptoms/episode began/occurred 4 day(s) ago. The symptoms do not radiate. Associated signs and symptoms: none. Pertinent negatives: nausea, vomiting, and diarrhea, chest pain, dysuria, fever, shortness of breath. The symptoms are described as sharp, stabbing. Modifying factors: The symptoms are alleviated by nothing, the symptoms are aggravated by nothing. Severity of pain: in the emergency department the pain is actually worse. The patient has not experienced similar symptoms in the past. The patient has been recently seen by a physician: Dr. Yao in the office and had labs and abdominal x-ray done yesterday Patient was called by Dr. Yao office to report to the ER for abnormal labs. Patient unaware of what labs were abnormal . Historical: - Allergies: 09:29 Tetanus Vaccines \T\ Toxoid; ll1 - PMHx: 09:29 Diabetes - NIDDM; Hypertension; ll1 - Immunization history:: Adult Immunizations up to date. - Social history:: Smoking status: Patient denies any tobacco usage or history of. ROS: 09:42 Constitutional: Negative for fever, chills, and weight loss, Cardiovascular: Negative pm1 for chest pain, palpitations, and edema, Respiratory: Negative for shortness of breath, cough, wheezing, and pleuritic chest pain. 09:42 Back: Negative for injury and pain, : Negative for injury, bleeding, discharge, and swelling, MS/Extremity: Negative for injury and deformity, Skin: Negative for injury, rash, and discoloration, Neuro: Negative for headache, weakness, numbness, tingling, and seizure. 09:42 Abdomen/GI: Positive for abdominal pain, of the right lower quadrant, Negative for nausea, vomiting, and diarrhea. 09:42 All other systems are negative. Exam: 09:42 Constitutional: This is a well developed, well nourished patient who is awake, alert, pm1 and in no acute distress. Head/Face: Normocephalic, atraumatic. 09:42 Back: No spinal tenderness. No costovertebral tenderness. Full range of motion. Skin: Warm, dry with normal turgor. Normal color with no rashes, no lesions, and no evidence of cellulitis. MS/ Extremity: Pulses equal, no cyanosis. Neurovascular intact. Full, normal range of motion. 09:42 Cardiovascular: Exam negative for acute changes, Rate: normal, Rhythm: regular, Pulses: no pulse deficits are appreciated. 09:42 Respiratory: Exam negative for acute changes, respiratory distress, shortness of breath, Breath sounds: are clear throughout. 09:42 Abdomen/GI: Inspection: obese Palpation: soft, in all quadrants, moderate abdominal tenderness, in the right lower quadrant. 09:42 Neuro: Exam negative for acute changes, Orientation: is normal, Mentation: is normal, Motor: is normal, moves all fours. Vital Signs: 09:39 Resp 16; Weight 121.11 kg; Height 5 ft. 6 in. (167.64 cm); Pain 8/10; ss 09:45 BP 119 / 75; Pulse 66; Resp 16; Temp 97.9(TE); Pulse Ox 97% on R/A; ss 11:00 BP 163 / 83; Pulse 58; ll1 14:00 BP 130 / 81; Pulse 56; Resp 17; ll1 15:00 BP 119 / 66; Pulse 54; Resp 17; Pulse Ox 97% ; ll1 16:00 BP 140 / 87; Pulse 51; Resp 16; Pulse Ox 97% on R/A; ll1 09:39 Body Mass Index 43.09 (121.11 kg, 167.64 cm) ss MDM: 09:26 Patient medically screened. pm1 09:50 Data reviewed: vital signs. Data interpreted: Pulse oximetry: on room air is 97 %. pm1 Interpretation: normal. 11:53 Counseling: I had a detailed discussion with the patient and/or guardian regarding: the pm1 historical points, exam findings, and any diagnostic results supporting the discharge/admit diagnosis, lab results, radiology results, the need for outpatient follow up, a urologist, to return to the emergency department if symptoms worsen or persist or if there are any questions or concerns that arise at home. 12:25 ED course: Pending completion of IV fluids, then discharge home. pm1 04/29 09:29 Order name: CBC with Diff; Complete Time: 10:46 pm1 04/29 09:29 Order name: CMP; Complete Time: 10:46 pm1 04/29 09:29 Order name: Lipase; Complete Time: 10:46 pm1 04/29 09:29 Order name: Urine Microscopic Only; Complete Time: 10:46 pm1 04/29 09:39 Order name: Urine Dipstick-Ancillary; Complete Time: 09:42 EDMS 04/29 11:02 Order name: Abdomen ; Complete Time: 11:29 EDMS 04/29 09:29 Order name: IV Saline Lock; Complete Time: 09:55 pm1 04/29 09:29 Order name: Labs collected and sent; Complete Time: 09:55 pm1 04/29 09:29 Order name: Urine Dipstick-Ancillary (obtain specimen); Complete Time: 09:55 pm1 Administered Medications: 09:55 Drug: NS 0.9% 1000 ml Route: IV; Rate: 1 bolus; Site: right antecubital; ll1 11:00 Follow up: Response: No adverse reaction; IV Status: Completed infusion; IV Intake: ll1 1000ml 09:56 Drug: Zofran (Ondansetron) 4 mg Route: IVP; Site: right antecubital; ll1 11:00 Follow up: Response: No adverse reaction ll1 09:56 Drug: morphine 4 mg Route: IVP; Infused Over: 4 mins; Site: right antecubital; ll1 15:01 Follow up: Response: No adverse reaction kr3 12:20 Drug: Ketorolac 15 mg Route: IVP; Site: right antecubital; kr3 14:59 Follow up: Response: No adverse reaction kr3 12:21 Drug: Flomax (tamsulosin) 0.4 mg Route: PO; kr3 16:11 Follow up: Response: No adverse reaction ll1 12:22 Drug: NS 0.9% 1000 ml Route: IV; Rate: 1000 ml; Site: right antecubital; kr3 16:11 Follow up: Response: No adverse reaction; IV Status: Completed infusion; IV Intake: ll1 950ml 14:10 Drug: morphine 4 mg Route: IVP; Infused Over: 4 mins; Site: right antecubital; kr3 15:00 Follow up: Response: No adverse reaction kr3 Disposition: 18:51 Co-signature as Attending Physician, Ernst Leon MD. rn Disposition Summary: 04/29/22 12:28 Discharge Ordered Location: Home pm1 Problem: new pm1 Symptoms: have improved pm1 Condition: Stable pm1 Diagnosis - Calculus of ureter - right ureter with right hydronephrosis pm1 Followup: pm1 - With: Emergency Department - When: As needed - Reason: Worsening of condition Followup: pm1 - With: Private Physician - When: 2 - 3 days - Reason: Recheck today's complaints, Continuance of care, Re-evaluation by your physician Discharge Instructions: - Discharge Summary Sheet pm1 - Kidney Stones pm1 - Dietary Guidelines to Help Prevent Kidney Stones pm1 Forms: - Medication Reconciliation Form pm1 - Thank You Letter pm1 - Antibiotic Education pm1 - Prescription Opioid Use pm1 Prescriptions: - Cipro 500 mg Oral Tablet - take 1 tablet by ORAL route every 12 hours for 7 days; 14 tablet; Refills: 0, pm1 Product Selection Permitted - Tylenol-Codeine #3 300 mg-30 mg Oral - take 2 tablet by ORAL route every 6 hours As needed; 20 tablet; Refills: 0, pm1 Product Selection Permitted - Flomax 0.4 mg Oral capsule - take 1 capsule by ORAL route once daily 1/2 hour following the same meal each pm1 day; 7 capsule; Refills: 0, Product Selection Permitted Signatures: Dispatcher [employer] EDErnst Almazan MD MD rn Marinas, Patrick, [employer] [facility] [employer] pm1 Noah Fontenot RN RN ll1 Ivelisse Michael RN RN kr3 Corrections: (The following items were deleted from the chart) 11:02 09:33 Abdomen Pelvis W [id number].[id number] ordered. EDNM EDMS
[2022-04-29 17:10] VITALS: TEMP 97.9; O2SAT 97
[2022-04-29 17:16] VITALS: BP 140/87
== END 2022-04-29 16:12 | disposition home or self-care (01) ==
LOC: ER 09:05
DX: N13.2 Hydronephrosis with renal and ureteral calculous obstruction (principal); R79.9 Abnormal finding of blood chemistry, unspecified; R10.31 Right lower quadrant pain; E11.8 Type 2 diabetes mellitus with unspecified complications; I10 Essential (primary) hypertension; Z88.7 Allergy status to serum and vaccine
CPT/HCPCS: 85025; 36415; 83690; 80053; 74176; J7030 ×2; J2405; 81003; 81015; 96361; 96374; 96375; 99284

== ENCOUNTER 2023-08-10 17:04 | Inpatient (IN) | payer OTHER ==
--- OUTSIDE RECORDS SUMMARY | 2023-08-10 17:08 | XMS REPORT | Continuity of Care Document ---
:1960 Author Organization [facility] t Address [address] [place] [address] [address] [place] [address] Care Team Providers Name Role Phone Maximilian Lima MD, Telly Primary Care Physician [phone] Telly Yao Attending Clinician Unavailable [email or web address]_Roxanna_S Attending Clinician Unavailable Johnny ORELLANA, Sarai Valente Attending Clinician Unavailable Kishan Rapp Attending Clinician [email or web address]_S Admitting Clinician Unavailable Payers Payer Name Policy Type Policy Number Effective Date Expiration Date Sheldon renae [facility] - [id number] [facility] - DUAL ELIGIBLE (MEDICARE REPLACEMENT/ADVANTA GE - HMO) [facility] [id number] 2016 [place] (MEDICAID 00:00:00 HMO) [facility] - [id number] PHYSICIAN HEALTH CHOICE (MEDICARE REPLACEMENT HMO) Problems Condition Condition Condition Status Onset Resolution Last Treating Co mments Source Name Details Category Date Date Treatment Clinician Date S/P S/P Disease Active Univers hysterecto hysterecto 8-15 it y of my my 00:00: [address] Branch Vasomotor Vasomotor Disease Active Uni vers symptoms symptoms 8-15 ity of due to due to 00:00: [place] menopause menopause 00 [facility] Branch Morbid Morbid Disease Active Univers obesity obesity 8-15 ity of 00:00: [place] [address] Medical Branch Abnormal Abnormal Disease Active Unive rs thyroid thyroid 4-11 ity of blood test [place] Dyslipidem Dyslipidem Disease Active U nivers ia ia 01-27 ity of 00:00: [place] Medical Branch Essential Essential Disease Active Uni vers hypertensi hypertensi 4 it y of on on 00:00: [place] 00 Medical Branch Type 2 Type 2 Disease Active Univers diabetes diabetes 103 ity of mellitus mellitus 00:00: [place] without without 00 Medical complicati complicati Br anch on, on, without without long-term long-term current current use of use of insulin insulin Low TSH Low TSH Disease Active Univers level level 1-03 ity of 00:00: [place] [facility] Low serum Low serum Disease Active Uni vers cortisol cortisol 10-21 ity of level level 00:00: [place] 00 Medical Branch Weight Weight Disease Active Univers gain gain 1 ity of 00:00: [place] [facility] Hypertensi Hypertensi Disease Active M ethodi on on 05-03 00:00: Hospita 00 l Chronic Chronic Disease Active Methodi headaches headaches 05-03 00:00: Hospita 00 l Morbid Morbid Disease Active [facility] obesity obesity 04-28 00:00: Hospita 00 l Pain, Pain, Diagnosis Active Common joint, joint, Spirit ankle, ankle, - [facility] right right [facility] Peroneal Peroneal Diagnosis Active Com mon tenosynovi tenosynovi Sp concepción tis [facility] Allergies, Adverse Reactions, Alerts Allergy Allergy Status Severity Reaction(s) Onset Inactive Treating Comm ents Source Name Type Date Date Clinician Tetanus Adverse Active Info Not Common Reaction Available [facility] Family History Family Member Diagnosis Comments Start Date Stop Date Source Natural father Heart disease [facility] Natural father Hyperlipidemia [facility] Natural sister Cancer [facility] Social History Social Habit Start Date Stop Date Quantity Comments Source Sexual orientation Method [facility] Tobacco use and 2017-10-29 2017-10-29 Smokeless [facility] exposure 00:00:00 00:00:00 tobacco non-user Hospital Alcohol intake 2017-10-29 2017-10-29 Current drinker [facility] dist 00:00:00 00:00:00 of alcohol Hospital (finding) History of Social 2017-10-29 2017-10-[address] function 00:00:00 00:00:00 Hospital Alcohol Comment 2016-04-28 2016-04-28 social < 2/week Meth odist 00:00:00 00:00:00 Hospital Sex Ass[birth year] At [birth year] [facility] 00:00:00 00:00:00 Hospital Smoking Status Start Date Stop Date Source Never smoker [facility] Medical Branch Medications Ordered Filled Start Stop Current Ordering Indication Dosage Frequency Signature Comments Components Source Medication Medication Date Date Medication? Clinician (SIG) Name Name glipiZIDE Yes [id number] 10mg Take 1 U nivers 10 mg 8-13 tablet by ity of tablet 00:00: mouth [place] 00 daily. Medical Branch glipiZIDE Yes [id number] 10mg Take 1 U nivers 10 mg 8-13 tablet by ity of tablet 00:00: mouth [place] 00 daily. Medical Branch ONE TOUCH Yes USE Univer s DELICA 33 5-13 DIRECTED, ity o f gauge Misc 00:00: [place] DAY, Medical DX:E11.9 Branch ONE TOUCH Yes USE Univer s DELICA 33 5-13 DIRECTED, ity o f gauge Misc 00:00: [place] DAY, Medical DX:E11.9 Branch glipiZIDE 2019- No 10mg Take 1 Unive rs 10 mg 5-10 08-13 tablet by ity of tablet 00:00: 00:00 mouth [place] 00 :00 daily. Medical Branch ATORVASTATI Yes 40mg TAKE 1 Univ ers N 40 mg 4-22 TABLET BY ity of tablet 00:00: MOUTH AT [place] 00 BEDTIME. Medical Branch ATORVASTATI Yes 40mg TAKE 1 Univ ers N 40 mg 4-22 TABLET BY ity of tablet 00:00: MOUTH AT [place] 00 BEDTIME. Medical Branch benazepril Yes 40mg Take 40 mg U nivers 40 mg 3-25 by mouth. ity of tablet 18:22: [place] 34 Medical Branch escitalopra 2018- Yes Take by Uni vers m oxalate 3-25 mouth. ity of 10 mg 18:22: [place] tablet 34 Medical Branch Cholecalcif Yes Take by Uni vers prashant, 3-25 mouth. ity of Vitamin D3, 18:22: [place] 400 unit 34 Medical tablet Branch esomeprazol Yes 40mg Take 40 mg Univers e (NEXIUM) 3-25 by mouth ity o f 40 mg 18:22: daily with [place] capsule 34 breakfast. Medica l Branch benazepril Yes 40mg Take 40 mg U nivers 40 mg 3-25 by mouth. ity of tablet 18:22: [place] 34 Medical Branch escitalopra Yes Take by Uni vers m oxalate 3-25 mouth. ity of 10 mg 18:22: [place] tablet 34 Medical Branch Cholecalcif Yes Take by Uni vers prashant, 3-25 mouth. ity of Vitamin D3, 18:22: [place] 400 unit 34 Medical tablet Branch esomeprazol Yes 40mg Take 40 mg Univers e (NEXIUM) 3-25 by mouth ity o f 40 mg 18:22: daily with [place] capsule 34 breakfast. Medica l Branch indomethaci Yes 50mg Take 50 mg Univers n 50 mg 3-25 by mouth 3 ity of capsule 18:21: (three) [place] 08 times Medical daily with Branch meals. indomethaci Yes 50mg Take 50 mg Univers n 50 mg 3-25 by mouth 3 ity of capsule 18:21: (three) [place] 08 times Medical daily with Branch meals. sitaGLIPtin Yes [id number] 100mg Take 1 Univers (JANUVIA) 3-25 tablet by ity o f 100 mg 00:00: mouth [place] tablet 00 daily. Medical Branch sitaGLIPtin Yes [id number] 100mg Take 1 Univers (JANUVIA) 3-25 tablet by ity o f 100 mg 00:00: mouth [place] tablet 00 daily. Medical Branch ONETOUCH Yes USE Univers ULTRA BLUE 1-08 DIRECTED, ity of TEST STRIP 00:00: [place] strip 00 DAY, Medical DX:E11.9 Branch metformin Yes [id number] 1000mg Take 2 Univers ER 500 mg 1-08 tablets by ity of 24 hr 00:00: mouth 2 [place] tablet 00 (two) Medical times Branch daily. ONETOUCH Yes USE Univers ULTRA BLUE 1-08 DIRECTED, ity of TEST STRIP 00:00: [place] strip 00 DAY, Medical DX:E11.9 Branch metformin Yes [id number] 1000mg Take 2 Univers ER 500 mg 1-08 tablets by ity of 24 hr 00:00: mouth 2 [place] tablet 00 (two) Medical times Branch daily. zolpidem Yes 5mg Take 5 mg Univ ers (AMBIEN) 5 9-25 by mouth ity o f mg tablet 18:51: at [place]time [place] 20 as needed Medical for Branch Insomnia. zolpidem Yes 5mg Take 5 mg Univ ers (AMBIEN) 5 9-25 by mouth ity o f mg tablet 18:51: [place]time [place] 20 as needed Medical for Branch Insomnia. albuterol Yes Inhale. Unive rs 0.63 mg/3 8-15 ity of mL 18:39: [place] nebulizer 35 Medical solution Branch albuterol Yes Inhale. Unive rs 0.63 mg/3 8-15 ity of mL 18:39: [place] nebulizer 35 Medical solution Branch omeprazole Yes TAKE 1 Unive rs 40 mg 8-12 CAPSULE BY ity of capsule 00:00: MOUTH [place] 00 EVERY DAY Medical Branch ondansetron Yes TAKE 1 Univ ers 4 mg tablet 8-12 TABLET BY ity of 00:00: MOUTH ONCE [place] 00 A DAY Medical Branch omeprazole Yes TAKE 1 Unive rs 40 mg 8-12 CAPSULE BY ity of capsule 00:00: MOUTH [place] 00 EVERY DAY Medical Branch ondansetron Yes TAKE 1 Univ ers 4 mg tablet 8-12 TABLET BY ity of 00:00: MOUTH ONCE [place] 00 A DAY Medical Branch AMLODIPINE Yes [id number] 10mg TAKE 1 U nivers 10 mg 7-11 TABLET BY ity of tablet 00:00: MOUTH [place] 00 DAILY. Medical Branch AMLODIPINE Yes [id number] 10mg TAKE 1 U nivers 10 mg 7-11 TABLET BY ity of tablet 00:00: MOUTH [place] 00 DAILY. Medical Branch cyanocobala Yes INJECT 1 Un melia min 1,000 7-06 MILLILITER ity of mcg/mL 00:00: INTRAMUSCU [place] injection 00 LARLY ONCE Medi prasad EVERY Branch MONTH diphenoxyla Yes TAKE 1 Univ ers te-atropine 7-06 TABLET BY ity of 2.5-0.025 00:00: MOUTH FOUR [place] mg per 00 TIMES A Medical tablet DAY Branch NEEDED ONE TOUCH Yes USE Univer s DELICA 33 7 DIRECTED, ity o f gauge Misc 00:00: [place] , Medical DX:E11.9 Branch cyanocobala Yes INJECT 1 Un melia min 1,000 7 MILLILITER ity of mcg/mL 00:00: INTRAMUSCU [place] injection 00 LARLY ONCE Medi prasad EVERY Branch MONTH diphenoxyla Yes TAKE 1 Univ ers te-atropine 7-06 TABLET BY ity of 2.5-0.025 00:00: MOUTH FOUR [place] mg per 00 TIMES A Medical tablet DAY Branch NEEDED ONE TOUCH Yes USE Univer s DELICA 33 7 DIRECTED, ity o f gauge Misc 00:00: [place] , Medical DX:E11.9 Branch carvedilol Yes 12.5mg QD Take 12.5 Methodi (COREG) 1-[address] 12.5 MG 13:21: mouth Hospita tablet 38 every l morning. benazepril Yes 40mg QD Take 40 mg M ethodi (LOTENSIN) [address] 40 MG 13:21: every Hospita tablet 38 morning. l pregabalin Yes 100mg Q.[id number] Take 100 Methodi (LYRICA) 1-[id number] 100 MG 13:21: 3D mouth 3 Hospita capsule 38 (three) l times a day. ESCITALOPRA 2017- Yes QD Take by Met hodi M OXALATE 1-[address] (LEXAPRO 13:21: every Hospita ORAL) 38 morning. l ALBUTEROL Yes Inhale as Met hodi SULFATE 1-[address] INHL 13:21: Hospita 38 l CHOLECALCIF Yes Take by Met hodi PRASHANT, 1-[address] VITAMIN D3, 13:21: daily. Hosp [facility]encer (VITAMIN D3 38 l ORAL) carvedilol Yes 12.5mg QD Take 12.5 Method[facility] (COREG) 1-[address] 12.5 MG 13:21: mouth Hospita tablet 38 every l morning. benazepril Yes 40mg QD Take 40 mg M ethodi (LOTENSIN) [address] 40 MG 13:21: every Hospita tablet 38 morning. l pregabalin Yes 100mg Q.[id number] Take 100 Method[facility] (LYRICA) [id number] 100 MG 13:21: 3D mouth 3 Hospita capsule 38 (three) l times a day. ESCITALOPRA Yes QD Take by Met hodi M OXALATE 1-[address] (LEXAPRO 13:21: every Hospita ORAL) 38 morning. l ALBUTEROL Yes Inhale as Met hodi SULFATE -[address] INHL 13:21: Hospita 38 l CHOLECALCIF Yes Take by Met hodi PRASHANT, 1-[address] VITAMIN D3, 13:21: daily. Hosp [facility] (VITAMIN D3 38 l ORAL) cyanocobala Yes INJECT 1 Me thodi min 1,000 7-[address] mcg/mL 00:00: INTRAMUSCU Hospi ta injection 00 LARLY ONCE l EVERY MONTH cyanocobala Yes INJECT 1 Me thodi min 1,000 7-[address] mcg/mL 00:00: INTRAMUSCU Hospi ta injection 00 LARLY ONCE l EVERY MONTH omeprazole 2016- Yes TAKE ONE Met hodi (PriLOSEC) 7-[address] 40 MG 00:00: MOUTH Hospita capsule 00 EVERY DAY l BEFORE A MEAL omeprazole Yes TAKE ONE Met hodi (PriLOSEC) 7-[address] 40 MG 00:00: MOUTH Hospita capsule 00 EVERY DAY l BEFORE A MEAL amLODIPine 2016- Yes Methodi (NORVASC) 5 1-13 st mg tablet 00:00: Hospita 00 l amLODIPine Yes [facility] (NORVASC) 5 1-13 st mg tablet 00:00: Hospita 00 l HYDROcodone 2016- Yes Method i -acetaminop 1-10 st hen (NORCO) 00:00: Hospit a 10-325 mg 00 l per tablet HYDROcodone Yes Method i -acetaminop 1-10 st hen (NORCO) 00:00: Hospit a 10-325 mg 00 l per tablet escitalopra 2015-10 Yes 20mg QD Take 20 mg Methodi m (LEXAPRO) 2-[address] 20 MG 00:00: once Hospita tablet 00 daily. l escitalopra 2015-10 Yes 20mg QD Take 20 mg Methodi m (LEXAPRO) 2-[address] 20 MG 00:00: once Hospita tablet 00 daily. l LYRICA 150 Yes 150mg Q.[id number] Take 150 [facility] mg capsule 6-[id number] 00:00: 3D mouth 3 Hospita 00 (three) l times a day. LYRICA 150 Yes 150mg Q.[id number] Take 150 [facility] mg capsule 6-[id number] 00:00: 3D mouth 3 Hospita 00 (three) l times a day. MICROLET Yes USE 2 [facility] LANCET misc 6-[address] 00:00: DAY (E Hospita 00 11.9) l MICROLET Yes USE 2 [facility] LANCET misc 6-[address] 00:00: DAY (E Hospita 00 11.9) l CRESTOR 10 Yes 10mg QD Take 10 mg M ethodi mg tablet 6-[address] 00:00: once Hospita 00 daily. l CRESTOR 10 Yes 10mg QD Take 10 mg M ethodi mg tablet 6-[address] 00:00: once Hospita 00 daily. l cetirizine Yes TAKE 1 Unive rs 10 mg 6-08 TABLET BY ity of tablet 00:00: MOUTH ONCE [place] 00 A DAY Medical NEEDED FOR Branch ALLERGIES cetirizine Yes TAKE 1 Unive rs 10 mg 6-08 TABLET BY ity of tablet 00:00: MOUTH ONCE [place] 00 A DAY Medical NEEDED FOR Branch ALLERGIES cetirizine Yes TAKE 1 Metho di (ZyrTEC) 10 6-[address] MG tablet 00:00: MOUTH ONCE Ho spita 00 A DAY l NEEDED FOR ALLERGIES cetirizine Yes TAKE 1 Metho di (ZyrTEC) 10 6-[address] MG tablet 00:00: MOUTH ONCE Ho spita 00 A DAY l NEEDED FOR ALLERGIES Trulicity Trulicity Yes Mohan not Co mmon Mcgovern defined [facility] Amoxicillin Amoxicillin Yes Mohan not Common Mcgovern defined [facility] Bacitracin Bacitracin Yes Mohan not Common Mcgovern defined [facility] GlipiZIDE GlipiZIDE Yes Mohan not Co mmon ER ER Mcgovern defined [facility] Benazepril Benazepril Yes Mohan not Common HCl HCl Mcgovern defined [facility] Nitrofurant Nitrofurant Yes Mohan not Common oin Monohyd oin Monohyd Mcgovern defined [facility] Macro Macro [facility] Atorvastati Atorvastati Yes Mohan not Common n Calcium n Calcium Mcgovern defined concepción [facility] Amlodipine Amlodipine Yes Mohan not Common Besylate Besylate Mcgovern defined Spir it [facility] Ondansetron Ondansetron Yes Mohan not Common HCl HCl Mcgovern defined [facility] MetFORMIN MetFORMIN Yes Mohan not Co mmon HCl ER HCl ER Mcgovern defined [facility] Omeprazole Omeprazole Yes Mohan not Common Mcgovern defined [facility] Januvia Januvia Yes Mohan not Common Mcgovern defined [facility] Hydrocodone Hydrocodone Yes Mohan not Common -Acetaminop -Acetaminop Mcgovern defined [facility] hen hen [facility] Escitalopra Escitalopra Yes Mohan not Common m Oxalate m Oxalate Mcgovern defined concepción [facility] PreviDent PreviDent Yes Mohan not Co mmon 5000 5000 Mcgovern defined [facility] Booster Booster [facility] Diphenoxyla Diphenoxyla Yes Mohan not Common te-Atropine te-Atropine Mcgovern defined [facility] Procedures This patient has no known procedures. Plan of Care Planned Activity Planned Date Details Comments Source Future Scheduled 2023-08-05 [facility] Test 10:29:03 malignant neoplasm of colon (procedure) [code = 145719087] Future Scheduled 2023-08-05 [facility] Test 10:29:03 malignant neoplasm of colon (procedure) [code = 783775607] Future Scheduled 2023-08-05 [facility] Test 10:29:03 malignant neoplasm of colon (procedure) [code = 772355446] Future Scheduled 2023-08-05 [facility]19 [facility] Test 10:29:03 (#1) [code = COVID-19 VACCINE (#1)] Future Scheduled 2023-08-05 [facility] Test 10:29:03 malignant neoplasm of cervix (procedure) [code = 948400806] Future Scheduled 2023-08-05 BREAST CANCER [facility] Test 10:29:03 SCREENING [code = BREAST CANCER SCREENING] Future Scheduled 2023-08-05 Screening for [facility] Test 10:29:03 malignant neoplasm of colon (procedure) [code = 579075698] Future Scheduled 2023-08-05 Screening for [facility] Test 10:29:03 malignant neoplasm of colon (procedure) [code = 049282117] Future Scheduled 2023-08-05 SHINGLES VACCINES Method [facility] Test 10:29:03 (1 of 2) [code = SHINGLES VACCINES (1 of 2)] Future Scheduled 2023-08-05 RSV VACCINES > 60 Method [facility] Test 10:29:03 YR (1 - 1-dose 60+ series) [code = RSV VACCINES > 60 YR (1 - 1-dose 60+ series)] Future Scheduled 2023-08-05 INFLUENZA VACCINE [facility] Test 10:29:03 (#1) [code = INFLUENZA VACCINE (#1)] Future Scheduled 2023-08-05 [facility] 10:29:03 malignant neoplasm of colon (procedure) [code = 346851698] Future Scheduled 2023-08-05 [facility] Test 10:29:03 malignant neoplasm of colon (procedure) [code = 568320420] Future Scheduled 2023-08-05 [facility] Test 10:29:03 malignant neoplasm of colon (procedure) [code = 262360294] Future Scheduled 2023-08-05 COVID-19 [facility]ACCINE [facility] Test 10:29:03 (#1) [code = COVID-19 VACCINE (#1)] Future Scheduled 2023-08-05 Screening for [facility] Test 10:29:03 malignant neoplasm of cervix (procedure) [code = 194620841] Future Scheduled 2023-08-05 BREAST CANCER [facility] Test 10:29:03 SCREENING [code = BREAST CANCER SCREENING] Future Scheduled 2023-08-05 Screening for [facility] Test 10:29:03 malignant neoplasm of colon (procedure) [code = 576460809] Future Scheduled 2023-08-05 Screening for [facility] Test 10:29:03 malignant neoplasm of colon (procedure) [code = 995314942] Future Scheduled 2023-08-05 SHINGLES VACCINES Method [facility] Test 10:29:03 (1 of 2) [code = SHINGLES VACCINES (1 of 2)] Future Scheduled 2023-08-05 RSV VACCINES > 60 Method [facility] Test 10:29:03 YR (1 - 1-dose 60+ series) [code = RSV VACCINES > 60 YR (1 - 1-dose 60+ series)] Future Scheduled 2023-08-05 INFLUENZA VACCINE Method [facility] Test 10:29:03 (#1) [code = INFLUENZA VACCINE (#1)] Encounters Start End Encounter Admission Attending Care Care Encounter Source Date/Time Date/Time Type Type Clinicians Facility Department ID 2023-05-19 Outpatient Yao, STLMLC [facility] [id number] Common 10:22:00 Telly [id number] [facility] 2023-05-12 Outpatient Yao, STLMLC [facility] [id number] Common 12:16:00 Telly [id number] [facility] 2023-04-29 Outpatient Yao, STLMLC [facility] [id number] Common 09:17:00 Telly [id number] [facility] 2023-02-25 Outpatient Yao, STLMLC [facility] [id number] Common 08:24:00 Telly [id number] [facility] 2022-12-12 Outpatient Yao, STLMLC [facility] [id number] Common 09:30:00 Telly [id number] [facility] 2023-07-17 2023-07-17 Outpatient GC_GCBZW_Ka PRIV PRIV [id number] [facility] 00:00:00 00:00:00 diyala_S [id number] Medic al 2023-07-17 2023-07-17 Outpatient GC_GCBZW_Ka PRIV PRIV [id number] [facility] 00:00:00 00:00:00 diyala_S [id number] Medic al 2023-07-17 2023-07-17 Outpatient GC_GCBZW_Ka PRIV PRIV [id number] [facility] 00:00:00 00:00:00 diyala_S [id number] Medic al 2023-07-11 2023-07-11 Outpatient GC_GCBZW_Ka PRIV PRIV [id number] [facility] 00:00:00 00:00:00 diyala_S [id number] Medic al 2023-06-15 2023-06-15 Outpatient GC_GCBZW_Ka PRIV PRIV [id number] [facility] 00:00:00 00:00:00 diyala_S [id number] Medic al 2023-06-15 2023-06-15 Outpatient GC_GCBZW_Ka PRIV PRIV [id number] [facility] 00:00:00 00:00:00 diyala_S [id number] Medic al 2023-06-09 2023-06-09 Outpatient GC_GCBZW_Ka PRIV PRIV [id number] [facility] 00:00:00 00:00:00 diyala_S [id number] Medic al 2023-06-08 2023-06-08 Outpatient GC_GCBZW_Ka PRIV PRIV [id number] [facility] 00:00:00 00:00:00 diyala_S [id number] Medic al 2023-05-21 2023-05-21 Outpatient GC_GCBZW_Ka PRIV PRIV [id number] [facility] 00:00:00 00:00:00 diyala_S [id number] Medic al 2023-05-19 2023-05-19 Outpatient GC_GCBZW_Ka PRIV PRIV [id number] [facility] 00:00:00 00:00:00 diyala_S [id number] Medic al 2022-11-04 2022-11-04 Outpatient SOLANGE SFA [id number] Pérez 13:52:08 13:52:08 [id number] Guille Elliott 2019-07-26 2019-07-26 [facility] [id number] Common 13:30:00 13:30:00 t Bone Bone [facility] Sp[facility] t and [facility] 2019-07-20 2019-07-20 Outpatient [facility] [id number] Common 14:22:00 14:22:00 t Bone Bone and Spiri t and Joint [facility] - [facility] 2019-07-02 2019-07-02 Natalia Turner [facility] [id number] Univers 00:00:00 00:00:00 Sarai [place] [id number] i ty of [id number] Profess[place] [phone] [address] 2019-07-02 2019-07-02 [facility] [id number] 00:00:00 00:00:00 Sarai [place] [id number] [place] [id number] Professio [phone] [address] 2019-06-13 2019-06-13 Outpatient [facility] [id number] Common 10:00:00 10:00:00 t Bone Bone and Spiri t and Joint [facility] - [facility] 2019-05-31 2019-05-31 [facility] [id number] Univers 00:00:00 00:00:00 Kishan H [place] [id number] i ty [id number] [phone] [address] 2019-05-31 2019-05-31 [facility] [id number] 00:00:00 00:00:00 Kishan H [place] [id number] [place] [id number] Professio [phone] [address] 2019-04-26 2019-04-26 Outpatient [facility] [id number] Common 11:00:00 11:00:00 t Bone Bone and Spiri t and Joint [facility] 2019-02-24 2019-02-24 Outpatient [facility] [id number] Common 11:00:00 11:00:00 t Bone Bone and Spiri t and Joint [facility] - [facility] 2019-01-27 2019-01-27 Outpatient [facility] [id number] Common 16:04:00 16:04:00 t Bone Bone and Spiri t and Joint [facility] 2019-01-27 2019-01-27 Outpatient [facility] [id number] Common 10:30:00 10:30:00 t Bone Bone and Spiri t and Joint [facility] - [facility] 2018-12-22 2018-12-22 Outpatient [facility] [id number] Common 13:26:00 13:26:00 t Bone Bone and Spiri t and Joint [facility] - [facility] 2018-12-21 2018-12-21 Outpatient [facility] [id number] Common 11:00:00 11:00:00 t Bone Bone and Spiri t and Joint [facility] - [facility] 2018-11-18 2018-11-18 Outpatient [facility] [id number] Common 10:30:00 10:30:00 t Bone Bone and Spiri t and Joint [facility] 2018-11-05 2018-11-05 Outpatient [facility] [id number] Common 10:33:00 10:33:00 t Bone Bone and Spiri t and Joint [facility] - [facility] 2018-10-29 2018-10-29 Outpatient [facility] [id number] Common 08:00:00 08:00:00 t Bone Bone and Spiri t and Joint [facility] - [facility] Results This patient has no known results.
[2023-08-10] MEDS ORDERED: ONDANSETRON 4 MG/2 ML VIAL ONE (18:07)
[2023-08-10] MEDS ORDERED: NA CHLORIDE 0.9% 500 ML ONE ×2 (18:07→21:10)
[2023-08-10 18:18] LABS: Albumin 2.6 g/dL (3.4-5.0); Bilirubin Total 0.8 mg/dL (0.2-1.0); Potassium 3.9 mEq/L (3.5-5.1); Protein, Total 7.6 g/dL (6.4-8.2); Troponin High Sensitivity 11.2 pg/mL (<58.9)
[2023-08-10 18:33] LABS: Absolute Lymphocytes (CBC) 2.3 K/uL (0.7-4.9); Hematocrit 38.3 % (36.0-45.0); Lymphocytes % 26.1 % (15.3-44.8); MCV 92.9 fL (80-100); MPV 7.9 fL (7.6-11.3); Platelets 216 thou/uL (152-406); RBC Red Blood Cell Count 4.13 M/uL (3.86-4.86)
--- NOTE | 2023-08-10 19:30 | RAD REPORT ---
EXAM DESCRIPTION: CT - Head Brain Wo Cont - 08/10/2023 7:16 pm CLINICAL HISTORY: Dizziness COMPARISON: 2013 TECHNIQUE: Computed axial tomography of the head was obtained. IV contrast was not requested. All CT scans are performed using dose optimization technique as appropriate and may include automated exposure control or mA/KV adjustment according to patient size. FINDINGS: An intracranial bleed is not seen The ventricles are normal in caliber No extra-axial fluid collection is noted. No significant hypodensity within the brain. Fluid within the sinuses/ mastoids is not seen. IMPRESSION: No acute intracranial abnormality is seen If patient's symptoms persist MRI of the brain would be recommended
--- NOTE | 2023-08-10 19:37 | RAD REPORT ---
EXAM DESCRIPTION: CT - Abdomen Pelvis Wo Contrast - 08/10/2023 7:17 pm CLINICAL HISTORY: Abdominal pain COMPARISON: 2021 TECHNIQUE: Computed axial tomography of the abdomen and pelvis was obtained. IV and oral contrast we re not requested. All CT scans are performed using dose optimization technique as appropriate and may include automated exposure control or mA/KV adjustment according to patient size. FINDINGS: The evaluation of solid organs, vessels and bowel is limited secondary to the lack of con trast administration. Tiny low-density lesion left lobe of the liver nonspecific but probably benign. Spleen, pancreas and adrenals grossly normal. Gastric bypass Multiple, bilateral renal calculi. Moderate left hydronephrosis which. There are cluster of calculi w ithin the mid left ureter measuring 13 millimeters in cranial caudal length. No evidence of diverticulitis. Normal appendix. Hysterectomy. No adnexal mass IMPRESSION: Cluster of calculi within the mid left ureter resulting in moderate left hydronephrosis
--- NOTE | 2023-08-10 19:48 | RAD REPORT ---
EXAM DESCRIPTION: [facility] Single View08/10/2023 6:28 pm CLINICAL HISTORY: Chest pain COMPARISON: January 2023 FINDINGS: Chronic elevation right hemidiaphragm Prominent right paratracheal opacity Lungs appear clear of acute infiltrate. Heart is normal size IMPRESSION: Prominent right paratracheal opacity may represent tortuous vessels, aneurysm, lymphaden opathy or substernal thyroid. CT chest would be helpful for further evaluation
--- NOTE | 2023-08-10 20:03 | ER ---
Nurse's Notes [facility] Name: Margy Nix Age: 63 yrs Sex: Female : 1960 Arrival Date: 08/10/2023 Time: 17:04 Bed 6 Private MD: Diagnosis: Hydronephrosis with renal and ureteral calculous obstruction;Acute kidney failure, unspecified Presentation: 08/10 17:11 Chief complaint: Patient states: elevated blood pressure, chest pain and head ache cm10 onset . Pt states that her chest pain is to the right side of her chest and does not radiate. Coronavirus screen: Vaccine status: Patient reports receiving the 2nd dose of the covid vaccine. Client denies travel out of the [place] in the last 14 days. Ebola Screen: Patient denies travel to an Ebola-affected area in the 21 days before illness onset. No symptoms or risks identified at this time. Initial Sepsis Screen: Does the patient meet any 2 criteria? No. Patient's initial sepsis screen is negative. Does the patient have a suspected source of infection? No. Patient's initial sepsis screen is negative. Risk Assessment: Do you want to hurt yourself or someone else? Patient reports no desire to harm self or others. Onset of symptoms was August 10, 2023. 17:11 Method Of Arrival: Ambulatory cm10 17:11 Acuity: CHAN 3 cm10 Triage Assessment: 22:22 General: Appears in no apparent distress. Behavior is calm, cooperative, appropriate nw1 for age, pt tolerated sandwich without n/v at this time . GI: Reports lower abdominal pain, nausea. Historical: - Allergies: 17:13 Tetanus Vaccines \T\ Toxoid; cm10 - PMHx: 17:13 Diabetes - NIDDM; Hypertension; cm10 - Immunization history:: Adult Immunizations unknown. - Social history:: Smoking status: Patient denies any tobacco usage or history of. - Family history:: not pertinent. - Hospitalizations: : No recent hospitalization is reported. Screenin:45 [facility] ED Fall Risk Assessment (Adult) History of falling in the last 3 months, iw including since admission No falls in past 3 months (0 pts) Confusion or Disorientation No (0 pts) Intoxicated or Sedated No (0 pts) Impaired Gait No (0 pts) Mobility Assist Device Used No (0 pt) Altered Elimination No (0 pt) Score/Fall Risk Level 0 - 2 = Low Risk Oriented to surroundings, Maintained a safe environment, Educated pt \T\ family on fall prevention, incl call for assistance when getting out of bed, Assessed \T\ reinforced patient's understanding of fall precautions, Provided non-skid footwear, Hourly rounding (assess needs \T\ fall precautionary measures) done, Used ambulatory aids as needed (educated on \T\ assisted with), Used gait belt as appropriate. Abuse screen: Denies threats or abuse. Denies injuries from another. Nutritional screening: No deficits noted. Tuberculosis screening: No symptoms or risk factors identified. Assessment: 17:45 General: Appears in no apparent distress. comfortable, Behavior is calm, cooperative, iw appropriate for age. Pain: Denies pain. Neuro: No deficits noted. Cardiovascular: Reports lightheadedness, since this morning. States her blood pressure has been fluctuating a lot. Respiratory: No deficits noted. GI: Abdomen is non-distended. : No deficits noted. EENT: No deficits noted. Derm: No deficits noted. Musculoskeletal: No deficits noted. 22:08 Reassessment: Attempted to give report to jose carlos Bangura 215 nurse. Per Sveta, she will call nw1 back as she is with a patient at this time. Pt noted in bed without s/s of acute distress noted. Will continue to monitor. Vital Signs: 17:11 BP 155 / 85; Pulse 61; Resp 16 S; Temp 98.2(TE); Pulse Ox 95% on R/A; Weight 116.12 kg cm10 (R); Height 5 ft. 6 in. (R); Pain 3/10; 17:30 BP 126 / 63; Pulse 60; Resp 18; Pulse Ox 99% ; iw 17:45 BP 134 / 74; Pulse 71; Resp 16; Pulse Ox 99% ; iw 18:22 BP 134 / 88; Pulse 72; Resp 16; Pulse Ox 99% ; iw 19:50 BP 155 / 78; Pulse 62; Resp 17; Pulse Ox 100% ; nw1 22:29 BP 148 / 72; Pulse 72; Resp 15; Pulse Ox 97% on R/A; nw1 17:11 Body Mass Index 41.32 (116.12 kg, 167.64 cm) cm10 17:11 Pain Scale: Adult cm10 ED Course: 17:08 Patient arrived in ED. im 17:09 Ernst Leon MD is Attending Physician. rn 17:13 Triage completed. cm10 17:13 Arm band placed on Patient placed in an exam room, on a stretcher. cm10 17:33 Shirley Carmona, RN is Primary Nurse. iw 17:45 Patient has correct armband on for positive identification. Bed in low position. Call iw light in reach. Side rails up X2. Provided Education on: na. Client placed on continuous cardiac and pulse oximetry monitoring. NIBP monitoring applied. desk monitor on. Door closed. Noise minimized. Lights dimmed. Warm blanket given. 17:45 Inserted saline lock: 22 gauge in right antecubital area, using aseptic technique. iw Blood collected. 17:51 NT PRO-BNP Sent. iw 17:52 Troponin HS Sent. iw 17:52 CBC with Diff Sent. iw 17:52 CMP Sent. iw 17:52 Lipase Sent. iw 18:30 XRAY Chest (1 view) In Process Unspecified. EDMS 19:18 CT Head Brain wo Cont In Process Unspecified. EDMS 19:18 Abdomen In Process Unspecified. EDMS 20:02 Yuniel Ann MD is Hospitalizing Provider. rn 22:11 No provider procedures requiring assistance completed. nw1 22:20 Urinalysis w/ reflexes Sent. nw1 22:22 no IV discontinued due to need of IV during admission. nw1 Administered Medications: 22:20 Discontinued: ns 0.9% 500 ml IV at bolus once nw1 22:19 Discontinued: magnesium sulfate1 grams IVPB once over 1 hrs nw1 17:57 Drug: NS 0.9% IV 500 ml IV at bolus once Route: IV; Rate: bolus; Site: right iw antecubital; 18:02 Drug: Ondansetron IVP 4 mg IVP once; over 2 minutes Route: IVP; Site: right antecubital;iw 21:11 Drug: NS 0.9% IV 500 ml IV at bolus once Route: IV; Rate: bolus; Infused Over: 30 mins; la4 Site: right antecubital; Delivery: Primary tubing; 21:11 Drug: morphine IVP or IV 2 mg IVP once over 4 mins Route: IVP; Rate: bolus; Infused la4 Over: 4 mins; Site: right antecubital; 21:12 Drug: Magnesium Sulfate IVPB 1 grams IVPB once over 1 hrs Route: IVPB; Rate: 100 ml/hr; la4 Infused Over: 1 hrs; Site: right antecubital; Delivery: Primary tubing; Medication: 22:23 VIS not applicable for this client. nw1 Outcome: 20:03 Decision to Hospitalize by Provider. rn 22:21 Admitted to Tele accompanied by nurse, room 215, on monitor, Report called to serena Bangura room 215 nurse 22:21 Condition: stable nw1 22:21 Instructed on the need for admit, Demonstrated understanding of need for admit 23:41 Patient left the ED. cm10 Signatures: Dispatcher [employer] Shirley Domingo RN RN Ersnt Leon MD MD rn Mendoza, Itzel im Martinez, Clarissa, RN RN cm10 Sarah Martinez RN RN la4 Radha Carmona RN RN nw1
--- NOTE | 2023-08-10 20:03 | EDPHYS ---
Physician Documentation [facility] Name: Margy Nix Age: 63 yrs Sex: Female : 1960 Arrival Date: 08/10/2023 Time: 17:04 Bed 6 Private MD: ED Physician Ernst Leon HPI: 08/10 17:42 This 63 yrs old Black Female presents to ER via Ambulatory with complaints of Blood rn pressure issues, Nausea, High heart rate. 17:42 The patient presents to the emergency department with nausea, abdominal pain. Onset: rn The symptoms/episode began/occurred yesterday. Possible causes: unknown. The symptoms are aggravated by nothing. The symptoms are alleviated by nothing. Severity of symptoms: At their worst the symptoms were moderate in the emergency department the symptoms have improved. The patient has not experienced similar symptoms in the past. Patient reports last few days has been having nausea, abdominal pain, generalized weakness, palpitations, dizziness and lightheaded. Reports took blood pressure on Thursday and was in the 80s. Her doctor took her off of half of her blood pressure medication. Today was in rehab feeling lightheaded and dizzy with palpitations so came in for further evaluation. Denies blood in the stool. Denies chest pain.. Historical: - Allergies: 17:13 Tetanus Vaccines \T\ Toxoid; cm10 - PMHx: 17:13 Diabetes - NIDDM; Hypertension; cm10 - Immunization history:: Adult Immunizations unknown. - Social history:: Smoking status: Patient denies any tobacco usage or history of. - Family history:: not pertinent. - Hospitalizations: : No recent hospitalization is reported. ROS: 17:42 Constitutional: Negative for fever, chills, and weight loss, Eyes: Negative for injury, rn pain, redness, and discharge, Neck: Negative for injury, pain, and swelling, Cardiovascular: Positive for palpitations Respiratory: Negative for shortness of breath, cough, wheezing, and pleuritic chest pain, Abdomen/GI: Positive for abdominal pain and nausea MS/Extremity: Negative for injury and deformity, Skin: Negative for injury, rash, and discoloration, Neuro: Positive for generalized weakness and malaise Exam: 17:42 Constitutional: This is a well developed, well nourished patient who is awake, alert, rn and in no acute distress. Head/Face: Normocephalic, atraumatic. ENT: Moist mucous membranes Cardiovascular: Regular rate and rhythm. No pulse deficits. Respiratory: No increased work of breathing, no retractions or nasal flaring. Abdomen/GI: Soft, mild tenderness left lower quadrant. No rebound. Skin: Warm, dry MS/ Extremity: Pulses equal, no cyanosis. Neuro: Awake and alert, GCS 15, oriented to person, place, time, and situation. Cranial nerves II-XII grossly intact. Motor strength 5/5 in all extremities. Sensory grossly intact. Cerebellar exam normal. 18:58 ECG was reviewed by the Attending Physician. rn Vital Signs: 17:11 BP 155 / 85; Pulse 61; Resp 16 S; Temp 98.2(TE); Pulse Ox 95% on R/A; Weight 116.12 kg cm10 (R); Height 5 ft. 6 in. (R); Pain 3/10; 17:30 BP 126 / 63; Pulse 60; Resp 18; Pulse Ox 99% ; iw 17:45 BP 134 / 74; Pulse 71; Resp 16; Pulse Ox 99% ; iw 18:22 BP 134 / 88; Pulse 72; Resp 16; Pulse Ox 99% ; iw 19:50 BP 155 / 78; Pulse 62; Resp 17; Pulse Ox 100% ; nw1 22:29 BP 148 / 72; Pulse 72; Resp 15; Pulse Ox 97% on R/A; nw1 17:11 Body Mass Index 41.32 (116.12 kg, 167.64 cm) cm10 17:11 Pain Scale: Adult cm10 MDM: 17:10 Patient medically screened. rn 19:58 Differential diagnosis: Nonspecific abd pain, appendicitis, diverticulitis, viral rn gastroenteritis, gastroenteritis, Kidney stone, hydronephrosis, UTI. Data reviewed: vital signs, nurses notes, lab test result(s), radiologic studies, CT scan, and as a result, I will admit patient. Consideration of Admission/Observation Patient was admitted/placed on observation. Escalation of care including admission/observation considered. Management of patient was discussed with the following: Winter Sports Manager: Dr. Casper contacted, request n.p.o. after midnight, will see patient tomorrow.. Counseling: I had a detailed discussion with the patient and/or guardian regarding the historical points, exam findings, and any diagnostic results supporting the discharge/admit diagnosis, lab results, radiology results, the need for further work-up and treatment in the hospital. 19:58 ED course: Patient with gripping of proximal kidney stones on the left side causing rn hydronephrosis, totaling 13 mm diameter, renal insufficiency, will admit for hydration and pain control as well as urological consultation.. 08/10 17:35 Order name: CBC with Diff; Complete Time: 19:24 rn 08/10 17:35 Order name: CMP; Complete Time: 19:24 rn 08/10 17:35 Order name: Lipase; Complete Time: 19:24 rn 08/10 17:35 Order name: Urinalysis w/ reflexes rn 08/10 17:35 Order name: NT PRO-BNP; Complete Time: 19:24 rn 08/10 17:35 Order name: Troponin HS; Complete Time: 19:24 rn 08/10 20:44 Order name: Urinalysis w/ reflexes EDMS 08/10 17:35 Order name: XRAY Chest (1 view); Complete Time: 19:51 rn 08/10 17:35 Order name: CT Head Brain wo Cont; Complete Time: 19:37 rn 08/10 19:02 Order name: Abdomen ; Complete Time: 19:51 EDMS 08/10 17:35 Order name: EKG; Complete Time: 17:36 rn 08/10 17:35 Order name: IV Saline Lock; Complete Time: 17:52 rn 08/10 17:35 Order name: Labs collected and sent; Complete Time: 17:52 rn 08/10 17:35 Order name: Cardiac monitoring; Complete Time: 17:40 rn 08/10 17:35 Order name: EKG - Nurse/Tech; Complete Time: 17:57 rn 08/10 17:35 Order name: O2 Per Protocol; Complete Time: 17:39 rn 08/10 17:35 Order name: O2 Sat Monitoring; Complete Time: 17:39 rn EC:58 Rate is 59 beats/min. Rhythm is regular. QRS [employer] is Normal. [place] interval is normal. QRS rn interval is normal. QT interval is normal. No Q waves. T waves are Normal. No ST changes noted. Clinical impression: Sinus bradycardia. Interpreted by me. Reviewed by me. Administered Medications: 22:20 Discontinued: ns 0.9% 500 ml IV at bolus once nw1 22:19 Discontinued: magnesium sulfate1 grams IVPB once over 1 hrs nw1 17:57 Drug: NS 0.9% IV 500 ml IV at bolus once Route: IV; Rate: bolus; Site: right iw antecubital; 18:02 Drug: Ondansetron IVP 4 mg IVP once; over 2 minutes Route: IVP; Site: right antecubital;iw 21:11 Drug: NS 0.9% IV 500 ml IV at bolus once Route: IV; Rate: bolus; Infused Over: 30 mins; la4 Site: right antecubital; Delivery: Primary tubing; 21:11 Drug: morphine IVP or IV 2 mg IVP once over 4 mins Route: IVP; Rate: bolus; Infused la4 Over: 4 mins; Site: right antecubital; 21:12 Drug: Magnesium Sulfate IVPB 1 grams IVPB once over 1 hrs Route: IVPB; Rate: 100 ml/hr; la4 Infused Over: 1 hrs; Site: right antecubital; Delivery: Primary tubing; Disposition Summary: 08/10/23 20:03 Hospitalization Ordered Notes: Hospitalization Status: Inpatient Admission rn Provider: Yuniel Ann rn Location: Telemetry/MedSurg (Inpatient) rn Condition: Stable rn Problem: new rn Symptoms: have improved rn Bed/Room Type: Standard rn Room Assignment: [facility] [place](08/10/23 21:57) Diagnosis - Hydronephrosis with renal and ureteral calculous obstruction rn - Acute kidney failure, unspecified rn Forms: - Medication Reconciliation Form rn - SBAR form rn - Leadership Thank You Letter rn Signatures: Dispatcher [employer] EDWI Marian Hoang RN RN mw Williams, Irene, RN RN iw Nieto, Roman, MD MD rn Martinez, Clarissa, RN RN cm10 Sarah Martinez RN RN la4 Corrections: (The following items were deleted from the chart) 19:02 17:35 Abdomen Pelvis W Con+CT.RAD.BRZ ordered. EDWI EDMS 21:57 20:03 rn liya
[2023-08-10] MEDS ORDERED: MORPHINE 2 MG/ML SYR IV PRN (20:43)
--- NOTE | 2023-08-10 20:45 | P.HP ---
Certification for Inpatient Patient admitted to: Observation With expected LOS: <2 Midnights Patient will require the following post-hospital care: None Practitioner: I am a practitioner with admitting privileges, knowledge of patient current condition, hospital course, and medical plan of care. Services: Services provided to patient in accordance with Admission requirements found in Title 42 Section 412.3 of the Code of Federal Regulations Patient History Date of Service: 08/11/23 Reason for admission: Kidney stone, suspected UTI. History of Present Illness: 63-year-old male patient with medical history significant for hypertension, hyperlipidemia, diabetes type 2, history of kidney stones who was evaluated for episode of flank pain with associated nausea/vomiting found to have kidney stone. She also had hydronephrosis. She has elevated creatinine of 2.2 and because of concerns for hydronephrosis secondary to kidney stone she was admitted for urology evaluation. She denied overt episode of burning micturition, fever, chills, rigor. Allergies gemcitabine Allergy (Verified 04/07/23 08:56) ITCHING/PRURITIS/diarrhea Tetanus Vaccines and Toxoid Allergy (Verified 04/07/23 08:56) Itching/Hives/Rash Home Medications: Benazepril HCl [Lotensin*] 40 mg PO DAILY 01/25/15 Pregabalin [Lyrica*] 150 mg PO TID 01/25/15 Albuterol Sulfate [Proair Hfa] 8.5 gm IH PRN PRN 11/01/18 Amlodipine [Norvasc*] 10 mg PO [id number] 11/01/18 Atorvastatin Calcium [Lipitor] 40 mg PO BEDTIME 11/01/18 Hydrocodone 7.5/APAP 325 [Glide 7.5/325 mg*] 1 tab PO Q6H PRN 11/01/18 Omeprazole [Prilosec] 40 mg PO DAILY 11/01/18 Ascorbic Acid [Vitamin C*] 500 mg PO DAILY 01/27/23 Biotin 2 tab PO DAILY 01/27/23 Escitalopram [Lexapro*] 20 mg PO DAILY 01/27/23 Glipizide [Glipizide ER] 10 mg PO DAILY 01/27/23 Montelukast [Singulair*] 10 mg PO DAILY 01/27/23 Ondansetron [Zofran (Odt)*] 4 mg PO Q6H PRN 01/27/23 - Past Medical/Surgical History Diabetic: Yes -: Diabetes -: Hypertension -: Asthma -: Obstructive Sleep Apnea -: MRSA more than 1 year -: Yoel Knee replacement -: Hernia Repair -: Breast reduction -: Hysterectomy - Family History Mother -: Hypertension Father -: Heart disease - Social History Alcohol use: No CD- Drugs: No Caffeine use: Yes Review of Systems General: Unremarkable Eyes: Unremarkable ENT: Unremarkable Respiratory: Unremarkable Cardiovascular: Unremarkable Gastrointestinal: Nausea, Vomiting, Abdominal Pain Musculoskeletal: Unremarkable Integumentary: Unremarkable Neurological: Unremarkable Physical Examination - Studies Laboratory Data (last 24 hrs) 08/10/23 08/10/23 17:50 17:50 WBC 8.60 Hgb 13.1 Hct 38.3 Plt Count 216 Sodium 138 Potassium 3.9 BUN 23 H Creatinine 2.21 H Glucose 74 Total Bilirubin 0.8 AST 28 ALT 52 Alkaline Phosphatase 82 Lipase 61 Assessment and Plan - Plan Kidney stone: Patient does have significant kidney stone with hydronephrosis. Urology has been consulted. She is on home tamsulosin dose. We will continue present medical management. We will start IV fluids for assistance with passage of stones. Pain control will be with as needed morphine. We will follow clinical symptomatology. She will be kept n.p.o. for surgical intervention in a.m. Hypertension: We will monitor vital signs per unit protocol and continue home antihypertensive medications Diabetes type 2: We will monitor blood sugar ACHS. We will continue sliding scale insulin for glucose control. When oral feeds are resumed, we will have on carb restricted diet. Hyperlipidemia: We will continue statin therapy. Prophylaxis: Heparin for DVT prophylaxis CODE STATUS: Full code Disposition: We will follow plans for kidney stone management. Discharge Plan: Home - Advance Directives Does patient have a Living Will: No Does patient have a Durable POA for Healthcare: No
[2023-08-10] MEDS ORDERED: MORPHINE 2 MG/ML SYR ONE (21:10)
[2023-08-10] MEDS ORDERED: MAGNESIUM SULFATE 1 gm IVPB 1 GM/100 ML BAG IV ONE (21:10)
[2023-08-10 21:27] LABS: Specific Gravity 1.016 (1.005-1.030); Urine Bacteria <20 /HPF (<20); Urine Bilirubin NEGATIVE (Negative); Urine Blood Negative (Negative); Urine Clarity Turbid (Clear); Urine Color Light-Yellow (Yellow); Urine Glucose NEGATIVE (Negative); Urine Mucus Slight /HPF (None Seen); Urine Protein TRACE (Negative); Urine RBC <5 /HPF (None Seen); Urine Urobilinogen Normal (Normal); Urine pH 5.5 (5.0-7.0)
[2023-08-11] MEDS: NA CHLORIDE 0.9% 1,000 ML IV SCH ×3 (00:21→17:00)
[2023-08-11] MEDS: TAMSULOSIN 0.4 MG SR CAP PO SCH ×2 (00:22→20:58)
[2023-08-11] MEDS: HEPARIN 5000 UNIT/ML 1 ML VIAL SQ SCH ×3 (01:23→16:20)
[2023-08-11] MEDS: ONDANSETRON 4 MG/2 ML VIAL IV PRN ×2 (01:42→12:45)
[2023-08-11] MEDS ORDERED: GLUCAGON 1 MG/VIAL IM PRN (04:00)
[2023-08-11] MEDS ORDERED: D50W 25 GM/50 ML SYRINGE IV PRN (04:00)
[2023-08-11] MEDS ORDERED: D10W 125 ML IV PRN (04:10)
[2023-08-11] MEDS ORDERED: MIDAZOLAM HCL 2 MG/2 ML INJ ONE (07:08)
[2023-08-11] MEDS ORDERED: FENTANYL CITR 100 MCG/2 ML ONE (07:08)
[2023-08-11] MEDS ORDERED: KETOROLAC 30 MG/ML INJ ONE (07:08)
[2023-08-11] MEDS ORDERED: LIDOCAINE 1% MPF 5 ML VIAL ONE (07:08)
[2023-08-11] MEDS ORDERED: propofoL 200 MG/20 ML VIAL IV ONE (07:08)
[2023-08-11] MEDS ORDERED: ONDANSETRON 4 MG/2 ML VIAL ONE (07:18)
[2023-08-11] MEDS: CEFTRIAXONE 1,000 MG in NA CHLORIDE 0.9% 50 ML IVPB SCH ×2 (07:34→07:45)
--- NOTE | 2023-08-11 07:43 | P.CNS ---
Date of Consult: 08/11/23 Reason for Consult: Acute kidney injury Requesting Physician: Ernst Leon Chief Complaint: Kidney stone, suspected UTI. History of Present Illness: 63-year-old woman, well-known to me with history of urothelial carcinoma of the bladder s/p TURBT plus adjuvant intravesical Mitomycin-C, allergic to gemcitabine, with hypertension, hyperlipidemia, DM 2, and MICHOACANO presented to the emergency department last night with left flank/mid axillary pain that did not radiate. It is been present since last Thursday and was associated with some nausea and some mild vomiting, but no fever or chills. She was evaluated with a CT scan and labs and was found to have acute kidney injury with creatinine 2.21, significantly reduced from prior. As a result, she was admitted and managed overnight in preparation for intervention this morning. Past medical history: As above Past surgical history: Bilateral knee replacements, breast reduction, hysterectomy, gastric bypass Allergies: Gemcitabine and tetanus Family history: No urologic malignancy Examination: Patient well-appearing and in no acute distress Alert, awake, oriented x3 No dyspnea or sign of respiratory distress Abdomen soft, nontender Resting in the stretcher comfortably Laboratory analyses WBC 8.6, hemoglobin 13.1, platelets 216, creatinine 2.21 with EGFR 24, urinalysis negative CT abdomen and pelvis without contrast 08/10/2013: My interpretation of images Multiple small volume bilateral nephrolithiasis with left mid ureteral calculi causing obstruction and mild to moderate hydronephrosis. Radiologist interpretation: Cluster of calculi within the mid left ureter measur ing 13 mm in craniocaudal length. No other abnormal findings of note. Tiny low-density lesion in the left lobe of the liver nonspecific but probably benign. History of gastric bypass. Assessment and recommendation: 63-year-old woman, well-known to me with history of urothelial carcinoma of the bladder s/p TURBT plus adjuvant intravesical Mitomycin-C, allergic to gemcitabine, with hypertension, hyperlipidemia, DM 2, and MICHOACANO with left mid ureterolithiasis, hydronephrosis, and acute kidney injury and a recurrent stone former. -I counseled the patient on the need for operative intervention to relieve the obstruction and allow the kidney function to return to baseline. I explained the recommendation for placement of left ureteral stent. Risks of the procedure were discussed to include urethral stricture, infection. -She will be scheduled accordingly for cystoscopy with left retrograde pyelography and left ureteral stent placement this morning. Consent obtained. Allergies gemcitabine Allergy (Verified 04/07/23 08:56) ITCHING/PRURITIS/diarrhea Tetanus Vaccines and Toxoid Allergy (Verified 04/07/23 08:56) Itching/Hives/Rash Home Medications: Benazepril HCl [Lotensin*] 40 mg PO DAILY 01/25/15 Pregabalin [Lyrica*] 150 mg PO TID 01/25/15 Albuterol Sulfate [Proair Hfa] 8.5 gm IH PRN PRN 11/01/18 Amlodipine [Norvasc*] 10 mg PO [id number] 11/01/18 Atorvastatin Calcium [Lipitor] 40 mg PO BEDTIME 11/01/18 Hydrocodone 7.5/APAP 325 [[place] 7.5/325 mg*] 1 tab PO Q6H PRN 11/01/18 Omeprazole [Prilosec] 40 mg PO DAILY 11/01/18 Ascorbic Acid [Vitamin C*] 500 mg PO DAILY 01/27/23 Biotin 2 tab PO DAILY 01/27/23 Escitalopram [Lexapro*] 20 mg PO DAILY 01/27/23 Glipizide [Glipizide ER] 10 mg PO DAILY 01/27/23 Montelukast [Singulair*] 10 mg PO DAILY 01/27/23 Ondansetron [Zofran (Odt)*] 4 mg PO Q6H PRN 01/27/23 - Past Medical/Surgical History Diabetic: Yes -: Diabetes -: Hypertension -: Asthma -: Obstructive Sleep Apnea -: MRSA more than 1 year -: Yoel Knee replacement -: Hernia Repair -: Breast reduction -: Hysterectomy - Family History Mother Medical History: Hypertension Father Medical History: Heart disease - Social History Alcohol use: No CD- Drugs: No Caffeine use: Yes Physical Examination Temp Pulse Resp BP Pulse Ox 97.6 F 86 17 139/83 93 08/11/23 04:00 08/11/23 04:00 08/11/23 04:00 08/11/23 04:00 08/11/23 04:00 Laboratory Data (last 24 hrs) 08/10/23 08/10/23 17:50 17:50 WBC 8.60 Hgb 13.1 Hct 38.3 Plt Count 216 Sodium 138 Potassium 3.9 BUN 23 H Creatinine 2.21 H Glucose 74 Total Bilirubin 0.8 AST 28 ALT 52 Alkaline Phosphatase 82 Lipase 61 - Problems (1) Ureterolithiasis Current Visit: Yes Status: Acute (2) Bilateral nephrolithiasis Current Visit: Yes Status: Acute (3) Acute kidney injury Current Visit: Yes Status: Acute Conclusions/Impression: See HPI Critical Care: No Time Spent Managing Pts care (In Minutes): 25
[2023-08-11] MEDS ORDERED: EPHEDRINE SULF 50 MG/ML VIAL ONE (08:10)
--- NOTE | 2023-08-11 08:14 | RAD REPORT ---
EXAM DESCRIPTION: RAD - Urethrocystogrphy Retrograde - 08/11/2023 8:06 am CLINICAL HISTORY: ICD N 20.0 FINDINGS: fluoroscopic spot images obtained. Fluoroscopy time 0.2 minutes Left ureter was cannulated and contrast administered. Subsequently an ureteral stent was placed. Exam ination was performed by Dr Casper
[2023-08-11] MEDS ORDERED: CODEINE 30MG/APAP 300MG TAB PO PRN ×3 (08:37→08:41)
[2023-08-11 09:41] LABS: Potassium 4.1 mEq/L (3.5-5.1)
--- NOTE | 2023-08-11 11:56 | EKG ---
Test Date: 2023-08-10 Test Time: 18:01:19 Brake Engineer: ABELINO MEASUREMENT RESULTS: Intervals: Rate: 59 CO: 168 QRSD: 84 QT: 432 QTc: 427 [place]: P: 60 CO: 168 QRS: 45 T: 79 INTERPRETIVE STATEMENTS: Sinus bradycardia Nonspecific T wave abnormality Abnormal ECG Compared to ECG 01/27/2023 09:13:39 T-wave abnormality now present Sinus rhythm no longer present Electronically Signed On 08-11-23 11:53:55 CDT by Michael Salcedo
--- NOTE | 2023-08-11 16:07 | P.CNS ---
Date of Consult: 08/11/23 Reason for Consult: KIMBERLEE/ CKD Requesting Physician: Jenaro Chavez Chief Complaint: Kidney stone, suspected UTI. History of Present Illness: 63-year-old male patient with medical history significant for hypertension, hyperlipidemia, diabetes type 2, history of kidney stones who was evaluated for episode of flank pain with associated nausea/vomiting found to have kidney stone. She also had hydronephrosis. She has elevated creatinine of 2.2 and because of concerns for hydronephrosis secondary to kidney stone she was admitted for urology evaluation. She denied overt episode of burning micturition, fever, chills, rigor. 17:42 This 63 yrs old Black Female presents to ER via Ambulatory with complaints of Blood rn pressure issues, Nausea, High heart rate. 17:42 The patient presents to the emergency department with nausea, abdominal pain. Onset: rn The symptoms/episode began/occurred yesterday. Possible causes: unknown. The symptoms are aggravated by nothing. The symptoms are alleviated by nothing. Severity of symptoms: At their worst the symptoms were moderate in the emergency department the symptoms have improved. The patient has not experienced similar symptoms in the past. Patient reports last few days has been having nausea, abdominal pain, generalized weakness, palpitations, dizziness and lightheaded. Reports took blood pressure on Thursday and was in the 80s. Her doctor took her off of half of her blood pressure medication. Today was in rehab feeling lightheaded and dizzy with palpitations so came in for further evaluation. Denies blood in the stool. Denies chest pain. 63-year-old woman, well-known to Dr. Casper with history of urothelial carcinoma of the bladder s/p TURBT plus adjuvant intravesical Mitomycin-C, allergic to gemcitabine, with hypertension, hyperlipidemia, DM 2, and MICHOACANO presented to the emergency department last night with left flank/mid axillary pain that did not radiate. It is been present since last Thursday and was associated with some nausea and some mild vomiting, but no fever or chills. She was evaluated with a CT scan and labs and was found to have acute kidney injury with creatinine 2.21, significantly reduced from prior. As a result, she was admitted and managed overnight in preparation for intervention this morning. She denies NSAIDs. She denies difficulty emptying her bladder. Her current urine is dark. Allergies gemcitabine Allergy (Verified 04/07/23 08:56) ITCHING/PRURITIS/diarrhea Tetanus Vaccines and Toxoid Allergy (Verified 04/07/23 08:56) Itching/Hives/Rash Home medications list reviewed: Yes Home Medications: Benazepril HCl [Lotensin*] 40 mg PO DAILY 01/25/15 Pregabalin [Lyrica*] 150 mg PO TID 01/25/15 Albuterol Sulfate [Proair Hfa] 8.5 gm IH PRN PRN 11/01/18 Amlodipine [Norvasc*] 10 mg PO [id number] 11/01/18 Atorvastatin Calcium [Lipitor] 40 mg PO BEDTIME 11/01/18 Hydrocodone 7.5/APAP 325 [[place] 7.5/325 mg*] 1 tab PO Q6H PRN 11/01/18 Omeprazole [Prilosec] 40 mg PO DAILY 11/01/18 Ascorbic Acid [Vitamin C*] 500 mg PO DAILY 01/27/23 Biotin 2 tab PO DAILY 01/27/23 Escitalopram [Lexapro*] 20 mg PO DAILY 01/27/23 Glipizide [Glipizide ER] 10 mg PO DAILY 01/27/23 Montelukast [Singulair*] 10 mg PO DAILY 01/27/23 Ondansetron [Zofran (Odt)*] 4 mg PO Q6H PRN 01/27/23 - Past Medical/Surgical History Diabetic: Yes -: Diabetes -: Hypertension -: Asthma -: Obstructive Sleep Apnea -: MRSA more than 1 year -: Yoel Knee replacement -: Hernia Repair -: Breast reduction -: Hysterectomy - Family History Mother Medical History: Hypertension Father Medical History: Heart disease - Social History Alcohol use: No CD- Drugs: No Caffeine use: Yes Review of Systems 10-point ROS is otherwise unremarkable Gastrointestinal: Abdominal Pain Physical Examination Temp Pulse Resp BP Pulse Ox 97.2 F 69 18 122/69 95 08/11/23 12:00 08/11/23 12:00 08/11/23 12:00 08/11/23 12:00 08/11/23 12:00 General: In no apparent distress, Oriented x3, Cooperative HEENT: Atraumatic Neck: Supple Respiratory: Diminished Cardiovascular: No edema, Regular rate/rhythm Gastrointestinal: Soft and benign, Non-distended Musculoskeletal: No clubbing, No contractures Integumentary: No rashes, No cyanosis Neurological: Normal speech Laboratory Data (last 24 hrs) 08/11/23 08/10/23 08/10/23 09:15 17:50 17:50 WBC 8.60 Hgb 13.1 Hct 38.3 Plt Count 216 Sodium 139 138 Potassium 4.1 3.9 BUN 17 23 H Creatinine 1.96 H 2.21 H Glucose 162 H 74 Total Bilirubin 0.8 AST 28 ALT 52 Alkaline Phosphatase 82 Lipase 61 Imagings Data: EXAM DESCRIPTION: [place] Single View08/10/2023 6:28 pm CLINICAL HISTORY: Chest pain COMPARISON: January 2023 FINDINGS: Chronic elevation right hemidiaphragm Prominent right paratracheal opacity Lungs appear clear of acute infiltrate. Heart is normal size IMPRESSION: Prominent right paratracheal opacity may represent tortuous vessels, aneurysm, lymphadenopathy or substernal thyroid. CT chest would be helpful for further evaluation EXAM DESCRIPTION: CT - Abdomen Pelvis Wo Contrast - 08/10/2023 7:17 pm CLINICAL HISTORY: Abdominal pain COMPARISON: 2021 TECHNIQUE: Computed axial tomography of the abdomen and pelvis was obtained. IV and oral contrast were not requested. All CT scans are performed using dose optimization technique as appropriate and may include automated exposure control or mA/KV adjustment according to patient size. FINDINGS: The evaluation of solid organs, vessels and bowel is limited secondary to the lack of contrast administration. Tiny low-density lesion left lobe of the liver nonspecific but probably benign. Spleen, pancreas and adrenals grossly normal. Gastric bypass Multiple, bilateral renal calculi. Moderate left hydronephrosis which. There are cluster of calculi within the mid left ureter measuring 13 millimeters in cranial caudal length. No evidence of diverticulitis. Normal appendix. Hysterectomy. No adnexal mass IMPRESSION: Cluster of calculi within the mid left ureter resulting in moderate left hydronephrosis Conclusions/Impression: Stage I KIMBERLEE in the setting of obstruction and hypovolemia CKD IIIa -No NSAIDs -Change IVF 1/2NS BL Nephrolithiasis with moderate left hydronephrosis -Ureteral stenting this morning -Continue IVF -Continue tamsulosin HTN with CKD -Hold antihypertensives at this time MICHOACANO -CPAP qhs DM II -RISS prn Hospitalist and Urology notes reviewed Case reviewed with Dr. Chavez Thank you kindly for the consultation
[2023-08-11] MEDS: HYDROCODONE/APAP 7.5/325 MG TAB PO PRN ×2 (16:20→22:15)
[2023-08-11] MEDS: NACHLORIDE 0.45% 1,000 ML IV SCH (17:26)
--- NOTE | 2023-08-11 18:31 | OP ---
Surgeon: BECKY NICOLE Preoperative Diagnoses: 1.Left ureterolithiasis. 2.Left hydronephrosis. 3.Acute kidney injury. 4.History of urothelial carcinoma of the bladder, status post transurethral resection of bladder herbie our and intravesical mitomycin-C induction course. Postoperative Diagnoses: 1.Left ureterolithiasis. 2.Left hydronephrosis. 3.Acute kidney injury. 4.History of urothelial carcinoma of the bladder, status post transurethral resection of bladder herbie our and intravesical mitomycin-C induction course. 5.Papillary necrosis. Principal Procedures: 1.Cystoscopy. 2.Left retrograde pyelography. 3.Left ureteral stent placement. Indication For Procedure: Ms. Nix presented to the emergency department with nausea and vomiting as sociated with some left mid axillary pain and was found to have an obstructing burden of stone in the mid left ureter associated with hydronephrosis and acute kidney injury. She was counseled on the wv ed for decompression and recommended for left ureteral stent placement. Procedure In Detail: The patient was consented in the preoperative holding area before being transfe rred to the operative suite where general anesthesia was induced. She had been given ceftriaxone, IV antimicrobial prophylaxis, and pneumo boots were provided for DVT prophylaxis. She was placed in th e lithotomy position, padded and secured to the table appropriately, and her genitalia was prepped wi [facility] and draped in standard fashion. The case was begun using a 22-Honduran rigid cystoscope t o traverse the urethra and into the bladder with ease. The bladder was decompressed of fluid and uri ne, and it was surveyed in its entirety. There were no papillary mucosal lesions, foreign bodies, or stones recurrent. The ureteral orifices were orthotopic in location. I thus cannulated the left ur eteral orifice using the tip of a 5-Honduran ureteral access catheter to perform a retrograde pyelogram . Left retrograde pyelography: Using a 70:30 mixture of Omnipaque and saline, contrast was injected via the lumen of the 5-Honduran ur eteral access catheter and did propagate into the distal ureter where obstruction prevented it from g oing further and it effluxed into the bladder. As a result, I advanced the 5-Honduran ureteral access catheter further into the mid ureter just beneath the burden of obstructing stone and again injected contrast. Despite this, higher pressured injection at that location, no contrast would go beyond the stone into the mid proximal ureter. As a result, despite absence of being able to delineate the pro ximal ureter with contrast, I attempted to pass the Sensor wire via the 5-Honduran ureteral access cath eter and into the collecting system, and I was successful navigating it into the putative collecting system. As such, I advanced the 5-Honduran ureteral access catheter over the wire into the mid proxima l ureter beyond the mass obstructing stone, and I again removed the wire and injected contrast, confi rming the appropriate localization within the calices and renal pelvis. As a result, I passed the wi re back through the 5-Honduran ureteral access catheter, removing the 5-Honduran ureteral access catheter , and then placed a 6-Honduran x 26 cm double-J ureteral stent over the wire coiling it within the em l pelvis and cystoscopically with a coil in the bladder. I then decompressed her bladder of fluid an d urine, and of note, I collected a sample of slightly purulent appearing urine, which was more consi stent with papillary necrosis that was sent for left renal aspirate urine culture. Her bladder was t hen decompressed, she was awakened from general anesthesia, transferred to a stretcher after taken ou t of the lithotomy position, and then transferred to the recovery room in good condition. Complications: None. Discharge Disposition: She will require outpatient followup where I will discuss with her the negati ve cystoscopic evaluation, which will extend the time for which she will need her next cystoscopy com pleted, relative to her history of bladder cancer, and I will also discuss with her the need for defi nitive surgical management of her left-sided ureteral and kidney stones and also efforts to decrease her risk of future stone forming event. ROWAN/JV Voice ID: [id number] Report ID: [id number]
--- NOTE | 2023-08-11 19:25 | P.PN ---
Subjective Date of Service: 08/11/23 Chief Complaint: Kidney stone, suspected UTI. No acute events since admission. She underwent cystoscopy with left ureteral stent placement this morning. She reports left flank pain and dysuria. She denies any fevers, chills, abdominal pain, nausea, or vomiting. Review of Systems 10-point ROS is otherwise unremarkable Genitourinary: Dysuria Musculoskeletal: Back Pain (left flank) Physical Examination - Vital Signs Temperature: 97.0 F Blood Pressure: 138/84 Pulse: 73 Respirations: 20 Pulse Ox (%): 96 - Physical Exam General: Alert, In no apparent distress, Oriented x3 HEENT: Atraumatic, Mucous membr. moist/pink, Sclerae nonicteric Neck: JVD not distended Respiratory: Clear to auscultation bilaterally, Normal air movement Cardiovascular: No edema, Regular rate/rhythm, Normal S1 S2, No gallops, No rubs, No murmurs Gastrointestinal: Normal bowel sounds, Soft and benign, Non-distended, No tenderness, No rebound, No guarding Musculoskeletal: No clubbing, Tenderness (left flank) Integumentary: No rashes Neurological: Normal speech, Normal affect - Studies Laboratory Data (last 24 hrs) 08/11/23 09:15 Sodium 139 Potassium 4.1 BUN 17 Creatinine 1.96 H Glucose 162 H Assessment And Plan - Plan # KDIGO Stage I Acute Kidney Injury likely due to Obstructive Uropathy # Moderate Left Hydronephrosis due to Urteronephrolithiasis - Urology consulted and she was evaluated by Dr. Casper - S/P cystoscopy, left retrograde pyelography, left ureteral stent placement - Nephrology consulted and spoke with Dr. Fung - Creatinine = 2.21 -> 1.96 (creatinine was 1.12 on 01/27/2023) - Urinalysis = trace protein - CT abdomen/pelvis = "cluster of calculi within the mid left ureter resulting in moderate left hydronephrosis" - Continue IV fluids - Monitor creatinine and urine output - Renally dose medications # Prominent Right Paratracheal Opacity - Chest x-ray = "prominent right paratracheal opacity may represent tortuous vessels, aneurysm, lymphadenopathy or substernal thyroid. CT chest would be helpful for further evaluation" - CT chest requested # Type II Diabetes Mellitus # Hypertension # Hyperlipidemia # Obstructive Sleep Apnea - Reconcile home medications once verified # Left Liver Lobe Low-Density Lesion - Noted on CT scan - Outpatient follow-up Jenaro Chavez M.D.
--- NOTE | 2023-08-11 23:26 | RAD REPORT ---
EXAM DESCRIPTION: CT - Thorax Wo Con - 08/11/2023 8:40 pm CLINICAL HISTORY: follow-up abnormal CXR COMPARISON: Abdomen Pelvis Wo Contrast dated 08/10/2023; Abdomen Pelvis Wo Contrast dated 020; Chest Single View dated 08/10/2023 TECHNIQUE: Axial thin cut images of the chest were obtained without IV contrast. Multiplanar reforma ts were generated and reviewed. All CT scans are performed using dose optimization technique as appropriate and may include automated exposure control or mA/KV adjustment according to patient size. FINDINGS: Elevation of the right hemidiaphragm, with segmental right middle and right lower lobe ate lectasis, stable. No mass or infiltrate in the lung parenchyma. 6 millimeter subpleural right upper l obe calcified granuloma. No pleural thickening or pleural effusion. No pneumothorax. Bulky left thyroid lobe without discrete nodules. No abnormal mediastinal or hilar masses or lymphadenopathy seen. No significant aortic or pulmonary a rtery findings. Assessment is limited in the absence of IV contrast. Dilation of the esophagus, with a moderate hiatal hernia with sequelae of partial gastrectomy again s een, stable compared to prior abdominal CTs. No chest wall mass or abnormal axillary lymphadenopathy. Evaluation of the solid abdominal structures reveals no suspicious findings. IMPRESSION: No suspicious mediastinal masses. Stable right basilar atelectatic changes and elevation of the right hemidiaphragm. No acute pulmonary process. Bulky left thyroid lobe, without discrete nodules. This can be further evaluated by dedicated thyroid ultrasound, if not previously evaluated
[2023-08-12] MEDS: HEPARIN 5000 UNIT/ML 1 ML VIAL SQ SCH ×3 (01:32→16:30)
[2023-08-12] MEDS: NACHLORIDE 0.45% 1,000 ML IV SCH ×3 (01:32→22:08)
[2023-08-12 03:37] LABS: Potassium 4.6 mEq/L (3.5-5.1)
[2023-08-12] MEDS: CEFTRIAXONE 1,000 MG in NA CHLORIDE 0.9% 50 ML IVPB SCH (08:38)
[2023-08-12] MEDS: ONDANSETRON 4 MG/2 ML VIAL IV PRN ×2 (08:39→21:57)
[2023-08-12] MEDS: HYDROCODONE/APAP 7.5/325 MG TAB PO PRN ×2 (08:39→16:31)
--- NOTE | 2023-08-12 11:27 | RAD REPORT ---
EXAM DESCRIPTION: US - Renal Ultrasound-Complete - 08/12/2023 9:50 am CLINICAL HISTORY: follow-up hydronephrosis COMPARISON: Abdomen Pelvis Wo Contrast dated 08/10/2023 FINDINGS: Both kidneys are normal in size, shape and echotexture. The right kidney measures 9.5. Several right renal calculi, the largest measuring 11 millimeters. No hydronephrosis . The left kidney measures 10.4. Left renal calculi noted, the largest measuring 11 millimeters in the lower pole. No hydronephrosis . The urinary bladder is incompletely distended without gross abnormality seen. IMPRESSION: Bilateral nephrolithiasis. No evidence of hydronephrosis.
--- NOTE | 2023-08-12 12:54 | P.PN ---
Subjective Date of Service: 08/12/23 Chief Complaint: Kidney stone, suspected UTI. POD #1 from cystoscopy with left ureteral stent placement. She reports that she has had persistent flank pain, currently graded a 7/10 in severity. She continues to report dysuria, but states that it has improved. She denies any fevers, chills, abdominal pain, nausea, or vomiting. Review of Systems 10-point ROS is otherwise unremarkable Genitourinary: Dysuria Musculoskeletal: Back Pain (left flank) Physical Examination - Vital Signs Temperature: 97.3 F Blood Pressure: 168/81 Pulse: 64 Respirations: 16 Pulse Ox (%): 95 - Physical Exam General: Alert, In no apparent distress, Oriented x3 HEENT: Atraumatic, Mucous membr. moist/pink, Sclerae nonicteric Neck: JVD not distended Respiratory: Clear to auscultation bilaterally, Normal air movement Cardiovascular: No edema, Regular rate/rhythm, Normal S1 S2, No gallops, No rubs, No murmurs Gastrointestinal: Normal bowel sounds, Soft and benign, Non-distended, No tenderness, No rebound, No guarding Musculoskeletal: No clubbing, Other (left flank pain) Integumentary: No rashes Neurological: Normal speech, Normal affect Assessment And Plan - Plan # KDIGO Stage I Acute Kidney Injury likely due to Obstructive Uropathy # Moderate Left Hydronephrosis due to Urteronephrolithiasis - Urology consulted and spoke with Dr. Casper - S/P cystoscopy, left retrograde pyelography, left ureteral stent placement - Nephrology consulted and spoke with Dr. Fung - Creatinine = 2.21 -> 1.96 -> 1.88 (creatinine was 1.12 on 01/27/2023) - Obtain follow-up renal ultrasound today - Urinalysis = trace protein - CT abdomen/pelvis = "cluster of calculi within the mid left ureter resulting in moderate left hydronephrosis" - Continue IV fluids - Monitor creatinine and urine output - Renally dose medications # Prominent Right Paratracheal Opacity # Bulky Left Thyroid Lobe - Chest x-ray = "prominent right paratracheal opacity may represent tortuous vessels, aneurysm, lymphadenopathy or substernal thyroid. CT chest would be helpful for further evaluation" - CT chest requested = "no suspicious mediastinal masses. Stable right basilar atelectatic changes and elevation of the right hemidiaphragm. No acute pulmonary process. Bulky left thyroid lobe, without discrete nodules. 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
--- NOTE | 2023-08-12 21:03 | P.PN ---
Date of Service: 08/12/23 Vital Signs Temp Pulse Resp BP Pulse Ox 97.4 F 59 17 168/78 H 97 08/12/23 20:00 08/12/23 20:00 08/12/23 20:00 08/12/23 20:00 08/12/23 20:00 Medications Hydrocodone Bitart/Acetaminophen (Hydrocodone/Apap 7.5/325 Mg Tab) 1 tab PO Q6H PRN PRN Reason: Pain scale 5-7 (Moderate) Last Admin: 08/12/23 16:31 Dose: 1 tab Amlodipine Besylate (Amlodipine 5 Mg Tab) 5 mg PO BID OLIVIA Glucagon (Glucagon 1 Mg/Vial) 1 mg IM 1X PRN PRN Reason: HYPOGLYCEMIA Heparin Sodium (Porcine) (Heparin 5000 Unit/Ml 1 Ml Vial) 5,000 unit SQ Q8HR OLIVIA Last Admin: 08/12/23 16:30 Dose: 5,000 unit Ceftriaxone Sodium 1,000 mg/ (Sodium Chloride) 50 mls @ 100 mls/hr IVPB DAILY OLIVIA; Protocol Last Admin: 08/12/23 08:38 Dose: 50 mls Dextrose (Dextrose 10% Water Iv Soln.) 125 mls @ 0 mls/hr IV PRN PRN; Protocol PRN Reason: HYPOGLYCEMIA Sodium Chloride (Sodium Chloride 0.45%) 1,000 mls @ 100 mls/hr IV .Q10H OLIVIA Morphine Sulfate (Morphine 2 Mg/Ml Syr) 2 mg IV Q4H PRN PRN Reason: Pain scale 8-10 (Severe) Last Admin: 08/11/23 01:22 Dose: 2 mg Ondansetron HCl (Ondansetron 4 Mg/2 Ml Vial) 4 mg IV Q6HP PRN PRN Reason: NAUSEA / VOMITING Last Admin: 08/12/23 08:39 Dose: 4 mg Tamsulosin HCl (Tamsulosin 0.4 Mg Sr Cap) 0.4 mg PO BEDTIME OLIVIA Last Admin: 08/11/23 20:58 Dose: 0.4 mg Assessment/ Plan: Nephrology No dyspnea No chest pain Feeling better No acute events overnight Vitals, medications, blood work and imaging reviewed in the chart General: In no apparent distress, Oriented x3, Cooperative HEENT: Atraumatic Neck: Supple Respiratory: Diminished Cardiovascular: No edema, Regular rate/rhythm Gastrointestinal: Soft and benign, Non-distended Musculoskeletal: No clubbing, No contractures Integumentary: No rashes, No cyanosis Neurological: Normal speech Laboratory Data (last 24 hrs) 08/11/23 08/10/23 08/10/23 09:15 17:50 17:50 WBC 8.60 Hgb 13.1 Hct 38.3 Plt Count 216 Sodium 139 138 Potassium 4.1 3.9 BUN 17 23 H Creatinine 1.96 H 2.21 H Glucose 162 H 74 Total Bilirubin 0.8 AST 28 ALT 52 Alkaline Phosphatase 82 Lipase 61 Imagings Data: EXAM DESCRIPTION: [place] Single View08/10/2023 6:28 pm CLINICAL HISTORY: Chest pain COMPARISON: January 2023 FINDINGS: Chronic elevation right hemidiaphragm Prominent right paratracheal opacity Lungs appear clear of acute infiltrate. Heart is normal size IMPRESSION: Prominent right paratracheal opacity may represent tortuous vessels, aneurysm, lymphadenopathy or substernal thyroid. CT chest would be helpful for further guera luation EXAM DESCRIPTION: CT - Abdomen Pelvis Wo Contrast - 08/10/2023 7:17 pm CLINICAL HISTORY: Abdominal pain COMPARISON: 2021 TECHNIQUE: Computed axial tomography of the abdomen and pelvis was obtained. IV and oral contrast were not requested. All CT scans are performed using dose optimization technique as appropriate and may include automated exposure control or mA/KV adjustment according to patient size. FINDINGS: The evaluation of solid organs, vessels and bowel is limited secondary to the lack of contrast administration. Tiny low-density lesion left lobe of the liver nonspecific but probably benign. Spleen, pancreas and adrenals grossly normal. Gastric bypass Multiple, bilateral renal calculi. Moderate left hydronephrosis which. There are cluster of calculi within the mid left ureter measuring 13 millimeters in cranial caudal length. No evidence of diverticulitis. Normal appendix. Hysterectomy. No adnexal mass IMPRESSION: Cluster of calculi within the mid left ureter resulting in moderate left hydronephrosis Conclusions/Impression: Stage I KIMBERLEE in the setting of obstruction and hypovolemia CKD IIIa -No NSAIDs -Continue IVF 1/2NS BL Nephrolithiasis with moderate left hydronephrosis -Ureteral stenting 08-11-23 -Continue IVF -Continue tamsulosin HTN with CKD -Restart Amlodipine MICHOACANO -CPAP qhs DM II -RISS prn Case reviewed with Dr. Chavez
[2023-08-12] MEDS: TAMSULOSIN 0.4 MG SR CAP PO SCH (22:07)
[2023-08-12] MEDS: AMLODIPINE 5 MG TAB PO SCH (22:07)
[2023-08-13] MEDS: HEPARIN 5000 UNIT/ML 1 ML VIAL SQ SCH ×2 (01:05→09:39)
[2023-08-13 03:29] LABS: Phosphorus 3.6 mg/dL (2.5-4.9); Potassium 4.3 mEq/L (3.5-5.1); Uric Acid 5.4 mg/dL (2.6-6.0)
[2023-08-13 04:20] LABS: UR PROTEIN 190.1 mg/dL (<11.9); Urine Protein/Creatinine Ratio 3.02 ratio (<0.15)
[2023-08-13 05:25] LABS: UR MICROALBUMIN 46.7 mg/dL (< 1.9)
[2023-08-13 05:52] LABS: Specific Gravity 1.011 (1.005-1.030); Urine Bacteria None Seen /HPF (<20); Urine Bilirubin NEGATIVE (Negative); Urine Blood 3+ (OVER) (Negative); Urine Clarity Extremely Turbid (Clear); Urine Color Brown (Yellow); Urine Glucose NEGATIVE (Negative); Urine Protein 1+ (Negative); Urine RBC >50 /HPF (None Seen); Urine Urobilinogen Normal (Normal); Urine pH 5.5 (5.0-7.0)
[2023-08-13] MEDS: NACHLORIDE 0.45% 1,000 ML IV SCH (06:12)
[2023-08-13] MEDS: AMLODIPINE 5 MG TAB PO SCH (06:32)
--- NOTE | 2023-08-13 07:24 | P.DS ---
Admission Date: 08/10/23 Discharge Date: 08/13/23 Disposition: ROUTINE DISCHARGE Discharge Condition: GOOD Reason for Admission: Kidney stone, suspected UTI. Consultations: 1. Nephrology 2. 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 Margy Nix is a pleasant 63 year old female with a past medical history significant for urothelial carcinoma of the bladder s/p TURBT plus adjuvant intravesical Mitomycin-C, type 2 diabetes mellitus, hypertension, hyperlipidemia, and obstructive sleep apnea who was admitted to the [facility] on 08/10/2023 for left flank pain and dysuria. She was admitted to the Medicine service. Upon further evaluation, she was found to have an acute kidney injury thought to be secondary to obstructive uropathy. Her CT abdomen/pelvis revealed, "cluster of calculi within the mid left ureter resulting in moderate left hydronephrosis." Urology and Nephrology were consulted and she was evaluated by Dr. Casper and Dr. Fung, respectively. On 08/11/2023, she underwent a cystoscopy, left retrograde pyelography, and left ureteral stent placement. She tolerated the procedure well and her pain is well- controlled. Her follow-up renal ultrasound revealed, "bilateral nephrolithiasis. No evidence of hydronephrosis." From their respective standpoints, they have cleared her to be discharged home. Of note, her scans revealed multiple incidental findings including, a liver lobe low-density lesion, a subpleural right upper lobe granuloma, a moderate hiatal hernia with esophageal dilation, and a multinodular thyroid goiter. These findings were discussed with her and she was advised to follow-up with her PCP for further evaluation. In regards to her thyroid nodule, she was advised to schedule a fine-needle aspiration and serial ultrasound through her PCP. In regards to her esophageal findings, she did not display any gastrointestinal symptoms. She did not have any nausea, vomiting, or abdominal pain. She was able to tolerate a regular diet, without any symptoms. She was advised to follow-up with Gastroenterology for further evaluation. On 08/13/2023, she was seen on rounds and deemed medically stable for discharge. She was discharged with instructions to schedule follow-up appointments with her PCP (VINEET Patel), with Urology (Dr. Casper), with Gastroenterology (Dr. Pearson) and with Nephrology (Dr. Fung). She was provided prescriptions for cefdinir and tamsulosin. She was given the opportunity to ask questions and reported no further questions. Furthermore, all questions were answered to the best of my ability. A copy of this discharge summary will be sent to the above providers to facilitate continuity of care. Today, I personally spent 25 minutes on her case, of which greater than 50% of the time was spent in patient education, counseling, and coordination of care as described above. - Physical Exam General: Alert, In no apparent distress, Oriented x3 HEENT: Atraumatic, Mucous membr. moist/pink, Sclerae nonicteric Respiratory: Clear to auscultation bilaterally, Normal air movement Cardiovascular: No edema, Regular rate/rhythm, No murmurs Gastrointestinal: Normal bowel sounds, Soft, Non-distended, No tenderness Musculoskeletal: No clubbing Integumentary: No rashes Neurological: Normal speech, Normal affect Vital Signs/Physical Exam: Temp Pulse Resp BP Pulse Ox 98.1 F 75 15 144/68 H 95 08/13/23 08:00 08/13/23 08:00 08/13/23 08:00 08/13/23 08:00 08/13/23 08:00 Laboratory Data at Discharge: WBC 8.60 thou/uL (4.3-10.9) 08/10/23 17:50 Hgb 13.1 g/dL (12.0-15.0) 08/10/23 17:50 Hct 38.3 % (36.0-45.0) 08/10/23 17:50 Plt Count 216 thou/uL (152-406) 08/10/23 17:50 Sodium 141 mEq/L (136-145) 08/13/23 01:51 Potassium 4.3 mEq/L (3.5-5.1) 08/13/23 01:51 BUN 19 mg/dL (7-18) H 08/13/23 01:51 Creatinine 1.43 mg/dL (0.55-1.02) H 08/13/23 01:51 Glucose 90 mg/dL (74-106) 08/13/23 01:51 Uric Acid 5.4 mg/dL (2.6-6.0) 08/13/23 01:51 Phosphorus 3.6 mg/dL (2.5-4.9) 08/13/23 01:51 Total Bilirubin 0.8 mg/dL (0.2-1.0) 08/10/23 17:50 AST 28 U/L (15-37) 08/10/23 17:50 ALT 52 U/L (13-56) 08/10/23 17:50 Alkaline Phosphatase 82 U/L (45-117) 08/10/23 17:50 Lipase 61 U/L (13-75) 08/10/23 17:50 Home Medications: Pregabalin [Lyrica*] 150 mg PO TID 01/25/15 Albuterol Sulfate [Proair Hfa] 8.5 gm IH PRN PRN 11/01/18 Amlodipine [Norvasc*] 10 mg PO [id number] 11/01/18 Atorvastatin Calcium [Lipitor] 40 mg PO BEDTIME 11/01/18 Hydrocodone 7.5/APAP 325 [[place] 7.5/325 mg*] 1 tab PO Q6H PRN 11/01/18 Omeprazole [Prilosec] 40 mg PO DAILY 11/01/18 Ascorbic Acid [Vitamin C*] 500 mg PO DAILY 01/27/23 Biotin 2 tab PO DAILY 01/27/23 Escitalopram [Lexapro*] 20 mg PO DAILY 01/27/23 Glipizide [Glipizide ER] 10 mg PO DAILY 01/27/23 Montelukast [Singulair*] 10 mg PO DAILY 01/27/23 Ondansetron [Zofran (Odt)*] 4 mg PO Q6H PRN 01/27/23 Cefdinir [Cefdinir*] 300 mg PO BID 7 Days #14 cap 08/13/23 Tamsulosin [Flomax*] 0.4 mg PO BEDTIME #30 cap 08/13/23 New Medications: Cefdinir [Cefdinir*] 300 mg PO BID 7 Days #14 cap Tamsulosin [Flomax*] 0.4 mg PO BEDTIME #30 cap Physician Discharge Instructions: 1. Please call and schedule a follow-up appointment with your PCP (VINEET Simms) in 3-5 days - Your CT scan showed a spot on your lung and a few small spots on your liver. Please discuss with your PCP for further evaluation. - Your thyroid was enlarged. Your ultrasound revealed multiple thyroid nodules, with one measuring 2.1 cm. You will need to have a follow-up ultrasound and biopsy of this nodule to make sure it is not cancer. Please discuss with your PCP for further evaluation. 2. Please call and schedule a follow-up appointment with Urology (Dr. Casper) in 3-5 days - He will schedule you to have the stent removed in his office 3. Please call and schedule a follow-up appointment with Nephrology (Dr. Fung) in 3-5 days - Please stop taking benazapril until re-started by Dr. Fung 4. Please call and schedule a follow-up appointment with Gastroenterology (Dr. Pearson) in 3-5 days - Your CT scan showed dilation of your esophagus and hernia (hiatal hernia). Please discuss with your PCP for further evaluation. - Please follow-up with your PCP for medication refills/adjustments Diet: Renal Activity: Ad shawna Followup: Eliseo Fung DO [ACTIVE - CAN ADMIT] - Yonis Casper [ACTIVE - CAN ADMIT] - Cassidy Patel FNP [OUTSIDE PHYSICIAN] - Hoang Pearson MD [ACTIVE - CAN ADMIT] - Time spent managing pt's care (in minutes): 25
[2023-08-13 08:13] LABS: Thyroid Stimulating Hormone 0.855 uIU/mL (0.358-3.740)
--- NOTE | 2023-08-13 08:41 | RAD REPORT ---
EXAM DESCRIPTION: US - Thyroid Para Parotid Gland - 08/13/2023 8:26 am CLINICAL HISTORY: enlarged on CT Thyroid goiter. COMPARISON: Thorax Wo Con dated 08/11/2023 FINDINGS: The isthmus of the thyroid measures 5 mm. The right lobe of the thyroid measures 2.6 x 2.3 x 1.4 cm. Small subcentimeter echogenic nodule suspe cted. The left lobe of the thyroid measures 4.3 x 2.9 x 2.2 cm. There is mildly echogenic 2.1 x 1.8 cm nodu le present. Additional small or echogenic nodules are present. The thyroid parenchyma is in general diffusely heterogenous. IMPRESSION: Moderate multinodular goiter pattern is suspected. 2.1 cm echogenic nodule left lobe is present. Recommend follow-up six-month thyroid ultrasound for monitoring.
[2023-08-13] MEDS: CEFTRIAXONE 1,000 MG in NA CHLORIDE 0.9% 50 ML IVPB SCH (09:38)
[2023-08-13] MEDS: HYDROCODONE/APAP 7.5/325 MG TAB PO PRN (09:39)
--- NOTE | 2023-08-13 10:46 | P.PN ---
Date of Service: 08/13/23 Vital Signs Temp Pulse Resp BP Pulse Ox 98.1 F 75 15 144/68 H 98 08/13/23 08:00 08/13/23 08:00 08/13/23 09:39 08/13/23 08:00 08/13/23 09:39 Medications Hydrocodone Bitart/Acetaminophen (Hydrocodone/Apap 7.5/325 Mg Tab) 1 tab PO Q6H PRN PRN Reason: Pain scale 5-7 (Moderate) Last Admin: 08/13/23 09:39 Dose: 1 tab Amlodipine Besylate (Amlodipine 5 Mg Tab) 5 mg PO BID OLIVIA Last Admin: 08/13/23 06:32 Dose: 5 mg Glucagon (Glucagon 1 Mg/Vial) 1 mg IM 1X PRN PRN Reason: HYPOGLYCEMIA Heparin Sodium (Porcine) (Heparin 5000 Unit/Ml 1 Ml Vial) 5,000 unit SQ Q8HR OLIVIA Last Admin: 08/13/23 09:39 Dose: 5,000 unit Ceftriaxone Sodium 1,000 mg/ (Sodium Chloride) 50 mls @ 100 mls/hr IVPB DAILY OLIVIA; Protocol Last Admin: 08/13/23 09:38 Dose: 50 mls Dextrose (Dextrose 10% Water Iv Soln.) 125 mls @ 0 mls/hr IV PRN PRN; Protocol PRN Reason: HYPOGLYCEMIA Sodium Chloride (Sodium Chloride 0.45%) 1,000 mls @ 100 mls/hr IV .Q10H OLIVIA Last Admin: 08/13/23 06:12 Dose: 1,000 mls Morphine Sulfate (Morphine 2 Mg/Ml Syr) 2 mg IV Q4H PRN PRN Reason: Pain scale 8-10 (Severe) Last Admin: 08/11/23 01:22 Dose: 2 mg Ondansetron HCl (Ondansetron 4 Mg/2 Ml Vial) 4 mg IV Q6HP PRN PRN Reason: NAUSEA / VOMITING Last Admin: 08/12/23 21:57 Dose: 4 mg Tamsulosin HCl (Tamsulosin 0.4 Mg Sr Cap) 0.4 mg PO BEDTIME [facility] Last Admin: 08/12/23 22:07 Dose: 0.4 mg Microbiology Results 08/11/23 09:56 Catheterized Urine [place] Count - Preliminary No growth. 08/11/23 09:56 Catheterized Urine - Preliminary No growth. Assessment/ Plan: Nephrology No dyspnea No chest pain Waxing and waning abdominal pain No acute events overnight Vitals, medications, blood work and imaging reviewed in the chart General: In no apparent distress, Oriented x3, Cooperative HEENT: Atraumatic Neck: Supple Respiratory: Normal resp effort Cardiovascular: No edema, Regular rate/rhythm Gastrointestinal: Soft and benign, Non-distended Musculoskeletal: No clubbing, No contractures Integumentary: No rashes, No cyanosis Neurological: Normal speech Laboratory Data (last 24 hrs) 08/11/23 08/10/23 08/10/23 09:15 17:50 17:50 WBC 8.60 Hgb 13.1 Hct 38.3 Plt Count 216 Sodium 139 138 Potassium 4.1 3.9 BUN 17 23 H Creatinine 1.96 H 2.21 H Glucose 162 H 74 Total Bilirubin 0.8 AST 28 ALT 52 Alkaline Phosphatase 82 Lipase 61 Imagings Data: EXAM DESCRIPTION: RADChest Single View08/10/2023 6:28 pm CLINICAL HISTORY: Chest pain COMPARISON: January 2023 FINDINGS: Chronic elevation right hemidiaphragm Prominent right paratracheal opacity Lungs appear clear of acute infiltrate. Heart is normal size IMPRESSION: Prominent right paratracheal opacity may represent tortuous vessels, aneurysm, lymphadenopathy or substernal thyroid. CT chest would be helpful for further evaluation EXAM DESCRIPTION: CT - Abdomen Pelvis Wo Contrast - 08/10/2023 7:17 pm CLINICAL HISTORY: Abdominal pain COMPARISON: 2021 TECHNIQUE: Computed axial tomography of the abdomen and pelvis was obtained. IV and oral contrast were not requested. All CT scans are performed using dose optimization technique as appropriate and may include automated exposure control or mA/KV adjustment according to patient size. FINDINGS: The evaluation of solid organs, vessels and bowel is limited secondary to the lack of contrast administration. Tiny low-density lesion left lobe of the liver nonspecific but probably benign. Spleen, pancreas and adrenals grossly normal. Gastric bypass Multiple, bilateral renal calculi. Moderate left hydronephrosis which. There are cluster of calculi within the mid left ureter measuring 13 millimeters in cranial caudal length. No evidence of diverticulitis. Normal appendix. Hysterectomy. No adnexal mass IMPRESSION: Cluster of calculi within the mid left ureter resulting in moderate left hydronephrosis Conclusions/Impression: Stage I KIMBERLEE in the setting of obstruction and hypovolemia CKD IIIa with Proteinuria -No NSAIDs -Continue IVF 1/2NS -Recommend a nephrology follow up BL Nephrolithiasis with moderate left hydronephrosis -Ureteral stenting 08-11-23 -Continue IVF -Continue tamsulosin -Follow up with urology HTN with CKD -Continue Amlodipine MICHOACANO -CPAP qhs DM II -RISS prn Case reviewed with Dr. Chavez
[2023-08-13 14:30] VITALS: O2SAT 97; BMI 41.1
[2023-08-13 18:20] VITALS: BP 148/74; TEMP 97.1
[2023-08-17 23:35] LABS: Vitamin D 1,25-Dihydroxy Total 66 pg/mL (18-72); Vitamin D,1,25-OH2, D2 <8 pg/mL
== END 2023-08-13 16:45 | disposition home or self-care (01) | DRG 661 ==
LOC: ER 17:04 → ERHOLD 20:40 → 2ND 22:18 → OBSVTOIN 08-11 12:29
PROVIDERS: ADMIT Internal Medicine Nephrology; ATTEND Internal Medicine
PROC: BT1F1ZZ Fluoroscopy of Left Kidney, Ureter and Bladder using Low Osmolar Contrast (ICD-10-PCS; 2023-08-11)
PROC: 0T778DZ Dilation of Left Ureter with Intraluminal Device, Via Natural or Artificial Opening Endoscopic (ICD-10-PCS; principal; 2023-08-11 07:15)
DX: N13.6 Pyonephrosis (principal); E11.9 Type 2 diabetes mellitus without complications; E78.5 Hyperlipidemia, unspecified; I12.9 Hypertensive chronic kidney disease with stage 1 through stage 4 chronic kidney disease, or unspecified chronic kidney disease; N18.31 Chronic kidney disease, stage 3a; E11.22 Type 2 diabetes mellitus with diabetic chronic kidney disease; N17.2 Acute kidney failure with medullary necrosis; K76.9 Liver disease, unspecified; K44.9 Diaphragmatic hernia without obstruction or gangrene; G47.33 Obstructive sleep apnea (adult) (pediatric); J84.10 Pulmonary fibrosis, unspecified; J45.909 Unspecified asthma, uncomplicated; Z88.7 Allergy status to serum and vaccine; Z79.84 Long term (current) use of oral hypoglycemic drugs; Z98.84 Bariatric surgery status; Z85.51 Personal history of malignant neoplasm of bladder; Z86.14 Personal history of Methicillin resistant Staphylococcus aureus infection; Z79.899 Other long term (current) drug therapy; Z90.710 Acquired absence of both cervix and uterus; Z96.653 Presence of artificial knee joint, bilateral
CPT/HCPCS: 36415; 51610; 70450; 71045; 71250; 74176; 74450; 76536; 76770; 80048; 80053; 81001; 82043; 82306; 82570; 82652; 82947; 83690; 83880; 83970; 84100; 84156; 84439; 84443; 84484; 84550; 85025; 87086; 87088; 93005; 96374; 96375; 99285; G0378; J0696; J1644; J2001; J2250; J2270; J2405; J2704; J3010; J3475; J7030; J7040

== ENCOUNTER 2023-09-15 09:16 | Day surgery (SDC) | payer OTHER ==
[2023-09-02 16:02] LABS: Protime INR 1.1
[2023-09-02 16:03] LABS: Absolute Lymphocytes (CBC) 2.4 K/uL (0.7-4.9); Lymphocytes % 36.4 % (15.3-44.8); MCV 93.5 fL (80-100); MPV 7.9 fL (7.6-11.3); Platelets 206 thou/uL (152-406); RBC Red Blood Cell Count 4.49 M/uL (3.86-4.86)
[2023-09-02 16:17] LABS: Magnesium 1.9 mg/dL (1.6-2.4); Potassium 3.8 mEq/L (3.5-5.1)
[2023-09-02 18:07] LABS: UR MICROALBUMIN 32.6 mg/dL (< 1.9)
[2023-09-15] MEDS ORDERED: NA CHLORIDE 0.9% 1,000 ML ONE (09:46)
[2023-09-15] MEDS ORDERED: propofoL 200 MG/20 ML VIAL IV ONE (11:05)
[2023-09-15] MEDS ORDERED: FENTANYL CITR 100 MCG/2 ML ONE (11:05)
[2023-09-15] MEDS ORDERED: MIDAZOLAM HCL 2 MG/2 ML INJ ONE (11:05)
[2023-09-15] MEDS ORDERED: LIDOCAINE 1% MPF 5 ML VIAL ONE (11:05)
[2023-09-15] MEDS ORDERED: ONDANSETRON 4 MG/2 ML VIAL ONE (11:06)
[2023-09-15] MEDS: CEFAZOLIN SODIUM 2 GM/VIAL ONE ×2 (11:21→11:40)
[2023-09-15] MEDS ORDERED: GLYCOPYRROLATE 0.2 MG/ML SYR ONE (11:33)
[2023-09-15] MEDS ORDERED: ROCURONIUM 50 MG/5 ML VIAL IV ONE (11:41)
[2023-09-15 13:46] VITALS: O2SAT 100
[2023-09-15] MEDS: MORPHINE 4 MG/ML SYR ONE ×2 (14:08→14:19)
[2023-09-15] MEDS ORDERED: PHENAZOPYRIDINE 100MG TAB PO ONE ×2 (14:13→15:10)
[2023-09-15] MEDS ORDERED: HYDROCODONE/APAP 5/325 MG TAB PO PRN (14:13)
--- NOTE | 2023-09-15 14:40 | RAD REPORT ---
EXAM DESCRIPTION: RAD - Urethrocystogrphy Retrograde - 09/15/2023 1:34 pm CLINICAL HISTORY: LT STENT EXCHANGE COMPARISON: <Comparisons> FINDINGS: Total fluoro time: 1 minutes and 21 seconds
[2023-09-15 15:11] VITALS: TEMP 97.1
[2023-09-15] MEDS ORDERED: HYDROCODONE/APAP 5/325 MG TAB ONE (15:11)
[2023-09-15] MEDS: KETOROLAC 30 MG/ML INJ ONE ×2 (15:30→16:00)
[2023-09-15 16:31] VITALS: BP 150/80
--- NOTE | 2023-09-15 19:58 | OP ---
Date of Procedure: 09/15/2023 Surgeon: BECKY NICOLE Preoperative Diagnoses: 1. Bilateral nephrolithiasis. 2. Left ureterolithiasis. 3. Status post cystoscopy with left ureteral stent placement. Postoperative Diagnoses: 1. Large volume left nephrolithiasis. 2. Large volume left ureterolithiasis. 3. Partially impacted left ureterolithiasis. 4. Right nephrolithiasis. 5. Right flank pain. Principal Procedures: 1. Cystoscopy. 2. Left retrograde pyelography. 3. Left ureteroscopy with laser lithotripsy, extensive. 4. Left pyeloscopy with laser lithotripsy, extensive. 5. Left ureteroscopic stone basketing. 6. Left pyeloscopic/renal stone basketing, extensive. 7. Left ureteral stent exchange. 8. Right retrograde pyelography. Indication For Procedure: Ms. Nix presented in followup in the [facility]rology [facility], well known to me because of a history of bladder tumor, incidentally found to be urothelial carcinoma. She underwent resection of the tumor in followup intravesical consolidation adjuvant chemotherapy without signs of recurrence; however, she developed significant left flank pain resulting in an emergency department visit associated with an obstructing left ureteral calculus. She underwent left ureteral stent placement and presents for definitive management of those stones. Of note, she had large volume nephrolithiasis and smaller volume right nephrolithiasis and also complained of some right flank pain, though no obstruction had previously been seen on CT. Procedure In Detail: The patient was consented in the preoperative holding area before being transferred to the operative suite where general anesthesia was induced. She was given Ancef 2 g IV antimicrobial prophylaxis, and pneumo boots were provided for DVT prophylaxis. She was placed in the lithotomy position, padded and secured to the table appropriately. Her genitalia were prepped with Hibiclens and she was draped in standard fashion. The case was begun using a 22-Mongolian rigid cystoscope to traverse the urethra and into the bladder with ease. The bladder was drained of fluid and urine with slight particulate matter, but no odor and no mucosal signs of cystitis/infection. The left ureteral stent was noted emanating from the left ureteral orifice, and the coil of the stent was grasped and brought to the meatus using an alligator grasper. I then utilized a Sensor wire passed via the stent, which coil still remained within the renal pelvis putatively, and passed a Sensor wire via the stent into the renal calyces as observed fluoroscopically. I then removed the stent leaving the wire in place and then turned my attention to the patient's right side. I then replaced the cystoscope back into her bladder and cannulated the right ureteral orifice using a 5-Mongolian ureteral access catheter. Right retrograde pyelography: Using a 70:30 mixture of Omnipaque and saline, contrast was injected via the lumen of the 5-Mongolian ureteral access catheter and did propagate up the distal into the mid and proximal ureter without any sign of ureteral dilation or ureteronephrosis, and while there was some delay in upward progress of the contrast at the level of the proximal ureter/UPJ, contrast did emanate beyond this and eventually entered a nondilated renal pelvis with sharp calyces lacking any signs of hydronephrosis or caliectasis. As a result, I removed the 5-Mongolian ureteral access catheter and observed the kidney for decompression of the contrast over the course of the next 15 minutes, and there was complete elimination of contrast observed in that time with less than 10% residual contrast within the calyces indicative of lack in obstruction. During this time, I also turned my attention back to the patient's left side. Left retrograde pyelography: I passed a dual-lumen catheter over the indwelling Sensor safety wire on the left into the distal and mid distal ureter where it reached a point of obstruction. I then injected contrast around this point of obstruction and there was a radiolucent obstruction at that point. I then attempted to pass a Bentson guidewire via the second lumen of the dual-lumen catheter, but it coiled beneath this point of obstruction suggestive that the impacted ureteral calculus was indeed in that location. As a result, I left the Sensor wire in place and removed the Bentson guidewire and a dual-lumen catheter and utilized a semirigid ureteroscope with direct vision to traverse the urethra and into the bladder before entering the left ureteral orifice and navigating to the point of obstruction observed fluoroscopically. There, an impacted calculus was observed with a lot of ureteral edema surrounding it. The calculus was likely around 8 mm in diameter. It was also very hard in nature and that I started with laser power settings of 0.8 joules and 10 hertz and had to increase to 15 to 25 hertz in order to adequately fragment the stone and release it from its near impacted state in the ureter. Once I got past the first ureteral impacted stone, there was a second stone behind it that was approximately 6 to 7 mm in diameter. So I similarly fragmented this stone using the laser before the significant stone calculus dust remnant required extraction. I thus switched the laser for a 1.9-Mongolian 0 tipped Nitinol basket and grasped and removed all of the larger stone fragments out of the ureter and deposited them within her bladder. I then advanced the ureteroscope back into the mid distal ureter and passed a Bentson guidewire via the ureteroscope into the collecting system coiling it alongside the safety wire. I then switched the semirigid ureteroscope for a flexible ureteroscope which was passed over the Bentson guidewire into the upper pole calyx. I then identified a degree of stone burden in the upper pole calyx that was relatively smaller with a stone that was a maximum of around 4 mm in diameter associated with 2 other stones that were about 2 to 3 mm in diameter. As a result, I utilized a laser fiber at a power setting of 1 joule and 25 hertz to fragment the stone to dust about the size of the laser fiber. I then surveyed into the upper mid pole calyces where I identified an additional calculus that was approximately 3 mm in diameter and fragmented this. Within the mid pole posterior calyces, I identified a significantly larger calculus that was likely around 9 mm in diameter. I thus fragmented this calculus extensively before identifying additional calculi within the mid lower pole calyces that in some total volume were likely slightly greater than 1 cm in diameter. These were also fragmented using the laser fiber. I then navigated the ureteroscope using fluoroscopic guidance by injecting additional contrast via the ureteroscope into the lower pole anterior calyx where I encountered an additional calculus approximately 6 mm in diameter. This was similarly fragmented. At this point, since a lot of stone burden had been managed in multiple calyces, I elected to remove the ureteroscope and instead used the dual-lumen catheter to pass a Bentson guidewire back into the collecting system and pass a ureteral access sheath over the Bentson guidewire, leaving the safety wire outside of it. Once the ureteral access sheath was navigated into her renal pelvis, I then utilized the ureteroscope and a basket, previously used, to begin to grasp and deliver much of the stone burden from the upper pole anterior and posterior calyces, the mid pole superior, mid pole, anterior and posterior calyces, and the lower pole anterior calyces where a lot of stone had been fragmented, but significant sized stone burden was still present. I was able to successfully remove even some large stones as large as around 7 mm in size under direct vision, bringing them out of the ureter or along with the ureteral access sheath. I then obtained spot fluoroscopic imagery, which revealed the presence of additional calcification fluoroscopically in the lower pole calyx, which was likely in the lower pole posterior calyx; so I used the semirigid ureteroscope to navigate under live fluoroscopic guidance following further injection of contrast into the infundibulum and ultimately to the point of calculus density observed fluoroscopically. There, I encountered an additional burden of stone that was in total likely around 1.2 cm in diameter. There was a dominant fragment that was approximately 9 to 10 mm with an additional associated set of calcifications that made up a total of an additional 2 or 3 additional millimeters of stone burden. I thus reemployed the laser fiber at a power of 1.2, then increased to 1.5 joules and 25 hertz to fragment those stone burden into dust around the size of the laser fiber. Once this was completed and fluoroscopically, the radiopaque density was now gone and no additional visible radiopaque densities were present within the kidney, I then surveyed through the calyces again for any significant sized stone fragments before passing a basket and grabbing as much of the stone dust in the lower pole calyx out bringing it out along with ureteroscope and the ureteral access sheath. Before I completely removed the ureteral access sheath, I replaced the obturator and performed a retrograde pyelogram to confirm the intact nature of the collecting system and ureter. No extravasation was noted and the collecting system was pristine without any sign of pelvocaliectasis. As a result, I backloaded the cystoscope over the indwelling safety wire and I passed a 6-Mongolian x 26 cm double-J left ureteral stent with a coil observed fluoroscopically in the upper pole and one cystoscopically formed in her bladder. I then decompressed her bladder of fluid and urine and removed the stone burden that was dumped into her bladder adding this to the stone burden removed from her kidney directly using the stone basket and from the ureter, and then removed the cystoscope. She was then taken out of the lithotomy position, awakened from general anesthesia, transferred to a stretcher, and then transferred to the recovery room in good condition. Complications: None. Discharge Disposition: She has no significant sized stone burden on the right to merit additional surgical treatment at this time. The largest stone in the upper pole on the right was around 4 mm. The other stone fragments on the right side were at largest 2 to 3 mm. No significant obstruction was observed on retrograde study of the right side. Extensive management of the stone burden on the left was performed; but since the stone was somewhat impacted within the mid ureter on the left, I recommend she keep the ureteral stent for at least 3 to 4 weeks minimum before it is removed within 4 to 6 weeks. She will be given a prescription for Keflex to take for the next 5 days given the extensive nature of the work performed here today to minimize the risk of any complicating infection. Subsequent evaluation required will be [facility] metabolic profile assessment, which will be done no sooner than 1 month after the stent is extracted. Subsequent outpatient urologic followup for cystoscopy will be required 3 months from 09/15/2023 per routine given her history of urothelial carcinoma of the bladder. ROWAN/JV Voice ID: [id number] Report ID: [id number] PENG
== END 2023-09-15 16:20 | disposition home or self-care (01) ==
LOC: OR 09:16
PROVIDERS: ATTEND Urology
PROC: 0TC78ZZ Extirpation of Matter from Left Ureter, Via Natural or Artificial Opening Endoscopic (ICD-10-PCS; 2023-09-15)
PROC: 0T778DZ Dilation of Left Ureter with Intraluminal Device, Via Natural or Artificial Opening Endoscopic (ICD-10-PCS; 2023-09-15)
PROC: 0TC18ZZ Extirpation of Matter from Left Kidney, Via Natural or Artificial Opening Endoscopic (ICD-10-PCS; principal; 2023-09-15 11:30)
DX: N20.2 Calculus of kidney with calculus of ureter (principal); R10.9 Unspecified abdominal pain; Z85.51 Personal history of malignant neoplasm of bladder
CPT/HCPCS: 87088; 85025; 87086; 80048; 36415; 83735; 85610; 82947 ×2; 88300; 82570; 82360; 82043; 74450; 51610; 52356; J2704; J2001; J2250; J3010; J2405; J7030

== ENCOUNTER → 2023-10-27 | Day surgery (SDC) | payer OTHER ==
--- NOTE | 2023-10-27 10:03 | RAD REPORT ---
EXAM DESCRIPTION: US - Extremity Nonvascular Limited - 10/27/2023 9:43 am CLINICAL HISTORY: Thyroid nodule E04.1 COMPARISON: July 2023 FINDINGS: The patient presented for a thyroid nodule fine-needle aspiration. The procedure was discu ssed with the patient. The patient preferred that if the nodule has not increased in size since 2022 to have a 6 month follow-up rather than fine-needle aspiration. Ultrasound demonstrates 2.1 centimeter nodule left lobe thyroid gland unchanged in size or appearance since the prior ultrasound IMPRESSION: 2.1 centimeter nodule left lobe thyroid gland unchanged from July 2023. The patient p refers to have a 6 month follow-up rather than ultrasound-guided fine-needle aspiration at the presen t time. She did state that if the nodule does enlarge she would be amenable to fine needle aspiration
== END ==
LOC: FNA 08:53
PROVIDERS: ATTEND Nurse Practitioner Family
DX: E04.1 Nontoxic single thyroid nodule (principal); Z53.8 Procedure and treatment not carried out for other reasons
CPT/HCPCS: 76882